=== PATIENT | female | born 1940 | race Caucasian/White ===

== ENCOUNTER 2016-08-11 10:38 | Outpatient (CLI) | payer MEDICARE, OTHER | END 2016-08-11 10:39 | disposition home or self-care (01) | DX: M51.36 Other intervertebral disc degeneration, lumbar region (principal); M47.896 Other spondylosis, lumbar region; M51.37 Other intervertebral disc degeneration, lumbosacral region; M47.897 Other spondylosis, lumbosacral region ==

== ENCOUNTER 2017-10-02 16:07 | Outpatient (CLI) | payer MEDICARE, OTHER | END 2017-10-02 16:08 | disposition critical access hospital (66) | LOC: EMS 16:07 | PROVIDERS: ATTEND Surgery | DX: S09.90XA Unspecified injury of head, initial encounter (principal); R41.82 Altered mental status, unspecified; W17.89XA Other fall from one level to another, initial encounter; Y92.000 Kitchen of unspecified non-institutional (private) residence as the place of occurrence of the external cause | CPT/HCPCS: A0425; A0427 ==

== ENCOUNTER 2017-10-02 16:20 | Inpatient (IN) | payer MEDICARE, OTHER ==
[2017-10-02] MEDS ORDERED: ONDANSETRON 4 MG/2 ML VIAL IVP STA (16:25)
[2017-10-02] MEDS ORDERED: LORazepam 2 MG/ML VIAL IVP STA (16:27)
[2017-10-02 16:35] LABS: BASOPHILS % (AUTO) 0.6 %; EOSINOPHILS # (AUTO) 0.1 10^3/uL (0.0-0.7); HGB - HEMOGLOBIN 14.4 g/dL (12.0-16.0); LYMPHOCYTES % (AUTO) 37.3 %; MEAN CORPUSCULAR HEMOGLOBIN 29.2 pg (27.0-31.0); MEAN CORPUSCULAR HGB CONC 33.8 g/dL (32.0-36.0); MEAN CORPUSCULAR VOLUME 86.5 fL (81.0-99.0); MEAN PLATELET VOLUME 7.5 fL (7.9-10.8); MONOCYTES # (AUTO) 0.4 10^3/uL (0.0-1.0); MONOCYTES % (AUTO) 7.6 %; NEUTROPHILS # (AUTO) 2.8 10^3/uL (1.5-6.6); NEUTROPHILS % (AUTO) 52.5 %; PLT - PLATELET COUNT 211 10^3/uL (130-450); RED BLOOD COUNT 4.93 10^6/uL (4.20-5.40); RED CELL DISTRIBUTION WIDTH 12.9 % (12.0-15.0); WHITE BLOOD COUNT 5.4 x10^3/uL (4.8-10.8)
[2017-10-02 16:49] LABS: ALBUMIN 4.3 g/dL (3.2-5.5); ALBUMIN/GLOBULIN RATIO 1.3 (1.0-2.2); BILIRUBIN,TOTAL 0.6 mg/dL (0.2-1.0); CALCIUM 9.1 mg/dL (8.5-10.3); CREATININE 0.7 mg/dL (0.4-1.0); TOTAL PROTEIN 7.6 g/dL (6.7-8.2)
--- NOTE | 2017-10-02 17:15 | CT Report ---
EXAM: CT HEAD EXAM DATE: 10/02/2017 04:56 PM. CLINICAL HISTORY: Fell and hit head, LOC and concussive symptoms. COMPARISON: 05/30/2007. TECHNIQUE: Multiaxial CT images were obtained from the foramen magnum to the vertex. Reformats: Coron al. IV contrast: None. In accordance with CT protocol optimization, one or more of the following dose reduction techniques w ere utilized for this exam: automated exposure control, adjustment of mA and/or KV based on patient s ize, or use of iterative reconstructive technique. FINDINGS: Parenchyma: There is [id number] nonfocal periventricular white matter hypodensity. Negative for acute intracranial hemorrhage. There is no midline shift or mass effect. Extraaxial Spaces: No subdural or epidural collections identified. Ventricles: Normal in size and position. Sinuses and Orbits: There is ethmoid sinus mucosal thickening. Bones: There is a posterior scalp hematoma. Other: None. IMPRESSION: 1. Negative for intracranial acute hemorrhage and mass effect. 2. Small posterior scalp hematoma. 3. 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 [facility] Referring Provider Line: [phone] SITE ID: [id number]
--- NOTE | 2017-10-02 17:15 | CT Preliminary Report ---
Exam: CT HEAD W/O IMPRESSION: 1. Negative for intracranial acute hemorrhage and mass effect. 2. Small posterior scalp hematoma. 3. 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 [facility] SITE ID: [id number]
--- NOTE | 2017-10-02 17:21 | CT Preliminary Report ---
Exam: CT CERVICAL SPINE W/O IMPRESSION: 1. Negative for an acute fracture and subluxation of the cervical spine. Multilevel chronic degenerat rahel disease present. [facility] SITE ID: [id number]
--- NOTE | 2017-10-02 17:21 | CT Report ---
EXAM: CT CERVICAL SPINE WITHOUT CONTRAST DATE: 10/02/2017 04:56 PM. HISTORY: Fell and hit head, LOC. COMPARISONS: 05/30/2007. TECHNIQUE: Thin-section axial images were acquired of the cervical spine without contrast. Post-proce ssing: Coronal and sagittal reformats. Other: None. In accordance with CT protocol optimization, one or more of the following dose reduction techniques w ere utilized for this exam: automated exposure control, adjustment of mA and/or KV based on patient s ize, or use of iterative reconstructive technique. FINDINGS: Alignment: No subluxation or scoliosis. Bones: Negative for an acute fracture. There is multilevel degenerative disease. Interspace Levels/Facets: There is joint space narrowing and spurring with subchondral cystic change around the anterior C1 and C2 articulation consistent with a degenerative process. There is moderate disk height loss at C4-C5, C5-C6, and C6-C7. Facet joints appear normal in alignment. Musculature: Normal. No fatty atrophy. Other: The thyroid is heterogeneous. No paravertebral hematoma. Negative for apical pneumothorax. IMPRESSION: 1. Negative for an acute fracture and subluxation of the cervical spine. Multilevel chronic degenerat rahel disease present. [facility] Referring Provider Line: [phone] SITE ID: [id number]
--- NOTE | 2017-10-02 17:53 | ED Physician Documentation ---
PD HPI HEAD INJURY - Stated complaint Stated Complaint: FALL - Chief complaint Chief Complaint: Neuro - History obtained from History obtained from: Patient, Family () - History of Present Illness Mechanism of head injury: Fell (She was on a two-step stepstool reaching on top of the fridge and fell backwards striking the back of her head. Her heard the fall from the other room and came in to find her unconscious and unresponsive. This was for couple of minutes. She was awake and vomiting on EMS arrival. She was not able to answer questions or follow commands. She was brought to the emergency room by ambulance. She was given fluids and antiemetic en route without much improvement. She arrives vomiting. She does not take any blood thinners. No history of seizures, migraines, concussion.) Where head injury occurred: Home Location of injury: Back Associated symptoms: LOC, AMS, Amnesia, Nausea / vomiting. No: Paresthesias, Seizures Contributing factors: No: Anticoagulated, Intoxicated Review of Systems Unable to obtain: AMS, Other (info from ) Constitutional: denies: Fever Cardiac: denies: Chest pain / pressure Respiratory: denies: Cough GI: denies: Abdominal Pain, Vomiting, Diarrhea Skin: denies: Rash PD PAST MEDICAL HISTORY - Past Medical History Past Medical History: No Cardiovascular: Hypertension Respiratory: None Endocrine/Autoimmune: None GI: None : None HEENT: None Psych: None Musculoskeletal: None Derm: None - Present Medications Home Medications: Ambulatory Orders Medication Instructions Recorded Confirmed Aspirin [Aspir 81] 81 mg ORAL DAILY 12/15/13 10/02/17 Citalopram Hydrobromide 40 mg PO DAILY 10/02/17 10/02/17 [Citalopram HBr] Ibuprofen 400 - 600 mg PO Q6H PRN 10/02/17 10/02/17 Levothyroxine Sodium 100 mcg PO DAILY 10/02/17 10/02/17 [place]-3 Acid Ethyl Esters 1 gm PO BID 10/02/17 10/02/17 Red Yeast Rice 600 mg PO DAILY 10/02/17 10/02/17 amLODIPine [Norvasc] 2.5 mg PO DAILY 10/02/17 10/02/17 - Allergies Allergies/Adverse Reactions: Allergies Allergy/AdvReac Type Severity Reaction Status Date / Time No Known Drug Allergies Allergy Verified 12/15/13 08:14 - Social History Does the pt smoke?: No Smoking Status: Never smoker Does the pt drink ETOH?: No Does the pt have substance abuse?: No - Family History Family history: reports: Non contributory PD ED PE NORMAL - Vitals Vital signs reviewed: Yes - General General: No: Alert and oriented X 3, No acute distress (anxious and is having repetitive vomiting on arrival. Removed from backboard after focused neuro exam without showing any camps/etc.) - HEENT HEENT: Ears normal, Moist mucous membranes, Pharynx benign, Other (tenderness in back of head with local swelling. ) - Neck Neck: Supple, no meningeal sign, No bony TTP, No adenopathy, No JVD - Cardiac Cardiac: RRR, No murmur - Respiratory Respiratory: Clear bilaterally - Abdomen Abdomen: Soft, Non tender - Female Female : Deferred - Rectal Rectal: Deferred - Back Back: No CVA TTP, No spinal TTP - Derm Derm: Normal color, Warm and dry - Extremities Extremities: No tenderness to palpate, Normal ROM s pain - Neuro Neuro: No motor deficit, No sensory deficit Eye Opening: Spontaneous Motor: Withdraws to Pain Verbal: Inappropriate GCS Score: 11 - Psych Psych: No: Normal affect Results - Vitals Vitals: Vital Signs - 24 hr 10/02/17 10/02/17 16:30 17:00 Temperature 36.5 C Heart Rate 80 62 Respiratory 22 12 Rate Blood Pressure 161/124 H 158/83 H O2 Saturation 100 100 Oxygen O2 Source Nasal cannula Oxygen Flow Rate 2 - Labs Labs: Laboratory Tests 10/02/17 10/02/17 10/02/17 16:25 16:25 16:25 WBC 5.4 RBC 4.93 Hgb 14.4 Hct 42.6 MCV 86.5 MCH 29.2 MCHC 33.8 RDW 12.9 Plt Count 211 MPV 7.5 L Neut # (Auto) 2.8 Lymph # (Auto) 2.0 Charlton # (Auto) 0.4 Eos # (Auto) 0.1 Baso # (Auto) 0.0 Absolute Nucleated RBC 0.00 Nucleated RBC % 0.0 PT 11.0 INR 1.0 APTT 25.9 Sodium 135 Potassium 3.3 L Chloride 101 Carbon Dioxide 25 Anion Gap 9.0 BUN 17 Creatinine 0.7 Estimated GFR (MDRD) 81 L Glucose 95 Calcium 9.1 Magnesium 2.0 Total Bilirubin 0.6 AST 37 ALT 31 Alkaline Phosphatase 63 Troponin I Total Protein 7.6 Albumin 4.3 Globulin 3.3 Albumin/Globulin Ratio 1.3 Lipase 44 10/02/17 16:25 WBC RBC Hgb Hct MCV MCH MCHC RDW Plt Count MPV Neut # (Auto) Lymph # (Auto) Charlton # (Auto) Eos # (Auto) Baso # (Auto) Absolute Nucleated RBC Nucleated RBC % PT INR APTT Sodium Potassium Chloride Carbon Dioxide Anion Gap BUN Creatinine Estimated GFR (MDRD) Glucose Calcium Magnesium Total Bilirubin AST ALT Alkaline Phosphatase Troponin I < 0.04 Total Protein Albumin Globulin Albumin/Globulin Ratio Lipase - Rads (name of study) head CT Radiology: Prelim report reviewed (no ICH nor fractures. ) cervical CT Radiology: Prelim report reviewed (no fractures) PD MEDICAL DECISION MAKING - ED course Complexity details: reviewed results (No ICH nor fractures. ), re-evaluated patient (slowly improving and is oriented to person on recheck post CT.), considered differential, d/w patient, d/w family Departure - Departure Disposition: 66 [facility] DC/Xfer Clinical Impression: Fall involving stool as cause of accidental injury Concussion Qualifiers: Encounter type: initial encounter Loss of consciousness presence/duration: with LOC of 30 min or less Qualified Code(s): S06.0X1A - Concussion with loss of consciousness of 30 minutes or less, initial encounter Vomiting Qualifiers: Vomiting type: unspecified Vomiting Intractability: non-intractable Nausea presence: with nausea Qualified Code(s): R11.2 - Nausea with vomiting, unspecified Clinical Impression: (Ruled Out): Intracranial hemorrhage Condition: Stable Record reviewed to determine appropriate education?: Yes Discharge Date/Time: 10/02/17 19:26
[2017-10-02] MEDS ORDERED: DEXAMETHASONE 10 MG/ML VIAL IVP STA (17:54)
[2017-10-02] MEDS ORDERED: PROMETHAZINE INJ 6.25 MG in SODIUM CHLORIDE 0.9% 50 ML IV STA (17:54)
--- NOTE | 2017-10-02 18:20 | HISTORY & PHYSICAL EXAMINATION ---
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 - Substance History Use: Uses substance without health or social issues: NONE Abuse: Recurrent use of substance despite neg consequences: NONE Dependence: Experiences withdrawal or developed tolerances: NONE - POLST Patient has POLST: No POLST Status: Full Code Meds/Allgy - Home Medications Home Medications: Ambulatory Orders Medication Instructions Recorded Confirmed Aspirin [Aspir 81] 81 mg ORAL DAILY 12/15/13 10/02/17 Citalopram Hydrobromide 40 mg PO DAILY 10/02/17 10/02/17 [Citalopram HBr] Levothyroxine Sodium 100 mcg PO DAILY 10/02/17 10/02/17 amLODIPine [Norvasc] 5 mg PO DAILY 10/02/17 10/02/17 - Allergies Allergies/Adverse Reactions: Allergies Allergy/AdvReac Type Severity Reaction Status Date / Time No Known Drug Allergies Allergy Verified 12/15/13 08:14 Review of Systems - Constitutional Constitutional: reports: Other (The patient's mental status is altered at this time; she is confused and has very little memory of what happened to her earlier today.). denies: Fatigue, Fever, Chills, Night sweats - Eyes Eyes: denies: Pain, Irritation, Blurred vision, Field loss, Dipolpia - Ears, Nose & Throat Ears, Nose & Throat: denies: Ear pain, Tinnitus, Vertigo, Nasal pain, Nosebleeds , Hoarseness - Cardiovascular Cariovascular: denies: Irregular heart rate, Palpitations, Chest pain, Edema, Syncope - Respiratory Respiratory: denies: Cough, Sputum production, Wheezing, Snoring, Hemoptysis, Orthopnea - Gastrointestinal Gastrointestinal: denies: Abdominal pain, Abdominal distention, Constipation, Diarrhea, Change in bowel habits, Rectal bleeding - Genitourinary Genitourinary: denies: Dysuria, Frequency, Urgency, Hematuria - Musculoskeletal Musculoskeletal: denies: Muscle pain, Back pain, Muscle aches, Stiffness - Integumentary Integumentary: denies: Rash, Pruritis, Lesions, Dryness - Neurological Neurological: reports: Other (Patient appears to have postconcussion syndrome consisting of confusion and poor memory. She has also vomited several times.). denies: General weakness, Focal weakness, Headache, Dizziness - Psychiatric Psychiatric: denies: Depression, Anxiety, Suicidal - Endocrine Endocrine: denies: Polyuria, Polydypsia, Polyphagia, Intolerance to cold - Hematologic/Lymphatic Hematologic/Lymphatic: denies: Anemia, Bruising, Petechiae, Lymphadenopathy - All Other Systems All Other Systems: reports: Reviewed and negative Exam - Vital Signs Reviewed Vital Signs: Yes Vital Signs: Vital Signs x48h Temp Pulse Resp BP Pulse Ox 10/02/17 17:00 62 12 158/83 H 100 10/02/17 16:30 36.5 C 80 22 161/124 H 100 - Physical Exam General Appearance: positive: Mild distress, Anxious Eyes Bilateral: positive: Normal inspection, PERRL, EOMI, No lid inflammation, Conjunctivae nml, No scleral icterus ENT: positive: ENT inspection nml, Pharynx nml, No signs of dehydration Neck: positive: Nml inspection, Thyroid nml, No JVD, Trachea midline. negative : Thyromegaly Respiratory: positive: Chest non-tender, No respiratory distress, Breath sounds nml. negative: Wheezes, Rales, Rhonchi Cardiovascular: positive: Regular rate & rhythm, No murmur, No gallop Peripheral Pulses: positive: 1+ Abdomen: positive: Non-tender, No organomegaly, Nml bowel sounds, No distention. negative: Guarding, Rebound Back: positive: Nml inspection. negative: CVA tenderness (R), CVA tenderness (L ) Skin: positive: Color nml, No rash, Warm, Dry. negative: Cyanosis Extremities: positive: Non-tender, Full ROM, Nml appearance Neurologic/Psychiatric: positive: CN's nml (2-12), Motor nml, Sensation nml, Mood/affect nml, Disoriented to place, Disoriented to time, Depressed mood/ affect Conclusion/Plan - Problem List (1) Concussion Conclusion/Plan: CT scan of the head and neck is negative for any bleeding or trauma however the patient is exhibiting signs of a postconcussive state including confusion, poor memory, and nausea and vomiting. We will admit her to medical surgical bed and monitor her closely overnight. If she returns to baseline we will discharge her tomorrow morning otherwise we will consider transferring her to a hospital where they have a neurologist on staff. Qualifiers: Encounter type: initial encounter Loss of consciousness presence/duration: with LOC of 30 min or less Qualified Code(s): S06.0X1A - Concussion with loss of consciousness of 30 minutes or less, initial encounter (2) Hypertension Conclusion/Plan: We will restart the patient on her amlodipine and monitor her closely. (3) Hypothyroidism Conclusion/Plan: We will continue the patient on her levothyroxine and obtain a TSH level in the morning. (4) Depression Conclusion/Plan: We will continue the patient on her citalopram - Lab Results Lab results reviewed: Yes Fish Bones: 10/02/17 16:25 10/02/17 16:25 - Diagnostic Imaging Results Diagnostic Imaging Results: positive: Final report reviewed Diagnostic Imaging Results Comments: EXAM: CT HEAD EXAM DATE: 10/02/2017 04:56 PM. CLINICAL HISTORY: Fell and hit head, LOC and concussive symptoms. COMPARISON: 05/30/2007. TECHNIQUE: Multiaxial CT images were obtained from the foramen magnum to the vertex. Reformats: Coronal. IV contrast: None. In accordance with CT protocol optimization, one or more of the following dose reduction techniques were utilized for this exam: automated exposure control, adjustment of mA and/or KV based on patient size, or use of iterative reconstructive technique. FINDINGS: Parenchyma: There is [id number] nonfocal periventricular white matter hypodensity. Negative for acute intracranial hemorrhage. There is no midline shift or mass effect. Extraaxial Spaces: No subdural or epidural collections identified. Ventricles: Normal in size and position. Sinuses and Orbits: There is ethmoid sinus mucosal thickening. Bones: There is a posterior scalp hematoma. Other: None. IMPRESSION: 1. Negative for intracranial acute hemorrhage and mass effect. 2. Small posterior scalp hematoma. 3. 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 EXAM: CT CERVICAL SPINE WITHOUT CONTRAST DATE: 10/02/2017 04:56 PM. HISTORY: Fell and hit head, LOC. COMPARISONS: 05/30/2007. TECHNIQUE: Thin-section axial images were acquired of the cervical spine without contrast. Post- processing: Coronal and sagittal reformats. Other: None. In accordance with CT protocol optimization, one or more of the following dose reduction techniques were utilized for this exam: automated exposure control, adjustment of mA and/or KV based on patient size, or use of iterative reconstructive technique. FINDINGS: Alignment: No subluxation or scoliosis. Bones: Negative for an acute fracture. There is multilevel degenerative disease. Interspace Levels/Facets: There is joint space narrowing and spurring with subchondral cystic change around the anterior C1 and C2 articulation consistent with a degenerative process. There is moderate disk height loss at C4 -C5, C5-C6, and C6-C7. Facet joints appear normal in alignment. Musculature: Normal. No fatty atrophy. Other: The thyroid is heterogeneous. No paravertebral hematoma. Negative for apical pneumothorax. IMPRESSION: 1. Negative for an acute fracture and subluxation of the cervical spine. Multilevel chronic degenerative disease present. - EKG Results EKG Interpreted Independently: Yes EKG Comparison: No prior EKG EKG Findings: Normal sinus rhythm, no ischemic changes noted Core Measures - Anticipated LOS I expect patient to be DC'd or transferred within 96 hours.: Yes - DVT/VTE - Prophylaxis VTE/DVT Device ordered at admit?: Yes
[2017-10-02] MEDS ORDERED: PROCHLORPERAZINE 10 MG/2 ML VIAL IVP PRN (18:33)
[2017-10-02] MEDS ORDERED: HYDROcod/ACETAM 5/325 MG TABLET PO PRN (18:33)
[2017-10-02] MEDS ORDERED: SODIUM CHLORIDE FLUSH 0.9% 10 ML SYRINGE IVP PRN (18:33)
[2017-10-02] MEDS: D5.45NS W/20 MEQ KCL 1,000 ML IV SCH (19:46)
[2017-10-02] MEDS ORDERED: ACETAMINOPHEN 325 MG TABLET PO PRN (22:15)
[2017-10-03] MEDS ORDERED: SODIUM CHLORIDE FLUSH 0.9% 10 ML SYRINGE IVP SCH (01:00)
[2017-10-03] MEDS: IBUPROFEN 600 MG TABLET PO SCH ×2 (01:54→08:15)
[2017-10-03] MEDS: D5.45NS W/20 MEQ KCL 1,000 ML IV SCH (05:52)
[2017-10-03 06:07] LABS: HGB - HEMOGLOBIN 12.8 g/dL (12.0-16.0); MEAN CORPUSCULAR HEMOGLOBIN 29.5 pg (27.0-31.0); MEAN CORPUSCULAR HGB CONC 33.5 g/dL (32.0-36.0); MEAN CORPUSCULAR VOLUME 87.9 fL (81.0-99.0); MEAN PLATELET VOLUME 7.9 fL (7.9-10.8); RED BLOOD COUNT 4.33 10^6/uL (4.20-5.40); RED CELL DISTRIBUTION WIDTH 12.8 % (12.0-15.0); WHITE BLOOD COUNT 5.8 x10^3/uL (4.8-10.8)
[2017-10-03 06:15] LABS: CALCIUM 8.6 mg/dL (8.5-10.3); CREATININE 0.7 mg/dL (0.4-1.0)
[2017-10-03] MEDS ORDERED: POLYETHYLENE GLYCOL 3350 17 GM PACKET PO SCH (09:00)
[2017-10-03] MEDS ORDERED: LEVOTHYROXINE 100 MCG TABLET PO SCH (09:00)
[2017-10-03] MEDS ORDERED: CITALOPRAM 10 MG TABLET PO SCH (09:00)
[2017-10-03] MEDS ORDERED: amLODIPine 5 MG TABLET PO SCH (09:00)
[2017-10-03] MEDS ORDERED: ACETAMINOPHEN 325 MG TABLET PO PRN (09:23)
--- NOTE | 2017-10-03 11:29 | Discharge Plan ---
Discharge Plan Disposition: 01 Home, Self Care Condition: Stable Diet: Regular Activity Restrictions: Activity as Tolerated Shower Restrictions: No Driving Restrictions: No No Smoking: If you smoke, Please STOP! Call for help. Follow-up with: Michelet Vega MD [Primary Care Provider] -
[2017-10-03 12:19] VITALS: BP 128/73
--- NOTE | 2017-10-03 12:52 | DISCHARGE SUMMARY ---
Discharge Summary Admit Date: 10/02/17 Discharge Date: 10/03/17 Discharging Provider: Marcela Posada DO Primary Care Provider: Michelet Vega Code Status: Attempt Resuscitation Condition at Discharge: Stable Discharge Disposition: 01 Home, Self Care - DIAGNOSES Admission Diagnoses: 1. Concussion 2. Hypertension 3. Hypothyroidism 4. Depression Discharge Diagnoses with Status of Each Condition: 1. Concussion - CT scan of the head and neck were negative for any bleeding or trauma but the patient was very obtunded yesterday. Her family is at the bedside today and states she is back to her baseline, and has remembered minute details in their conversations this morning. Since she was negative for any imaging workup problems, we will discharge her home this afternoon. 2. Hypertension- The patient's blood pressure was elevated last night but it is 128/73 at this time. Continue home regimen 3. Hypothyroidism - The patient's TSH is low suggesting that her levothyroxine dosing may be higher than what she needs. I will ask her to follow-up with her PCP. 4. Depression - Well-managed, continue home Celexa. - HPI History of Present Illness: Mrs. Regi Vo is a very pleasant 77-year-old lady who was reaching for something overhead on a step stool earlier today when she lost her balance, falling backwards, and striking her head. Her was in the room next door and heard her fall and when he came in found her to be minimally responsive but conscious with her head abdomen on ankle. In the emergency department the patient underwent a CT scan of her head and neck and these were negative for any type of trauma or bleeding. Unfortunately however the patient still remains obtunded, very confused with no memory of the preceding events or anything that happened earlier today. She is oriented only to person at this time and so will be admitted to the hospital for serial neuro checks and possible further workup. - HOSPITAL COURSE Hospital Course: Patient was admitted to the hospital in medical surgical bed and had neuro checks performed serially. Today she is back to her baseline according to her family and is not showing any signs of any lasting damage from the concussion yesterday. She has no other medical issues and so will be discharged home today. - ALLERGIES Allergies/Adverse Reactions: Allergies Allergy/AdvReac Type Severity Reaction Status Date / Time No Known Drug Allergies Allergy Verified 12/15/13 08:14 - MEDICATIONS Home Medications: Ambulatory Orders Medication Instructions Recorded Confirmed Aspirin [Aspir 81] 81 mg ORAL DAILY 12/15/13 10/02/17 Citalopram Hydrobromide 40 mg PO DAILY 10/02/17 10/02/17 [Citalopram HBr] Ibuprofen 400 - 600 mg PO Q6H PRN 10/02/17 10/02/17 Levothyroxine Sodium 100 mcg PO DAILY 10/02/17 10/02/17 [place]-3 Acid Ethyl Esters 1 gm PO BID 10/02/17 10/02/17 Red Yeast Rice 600 mg PO DAILY 10/02/17 10/02/17 amLODIPine [Norvasc] 2.5 mg PO DAILY 10/02/17 10/02/17 Ibuprofen [Motrin] 600 mg PO Q6H tablet 10/03/17 Polyethylene Glycol 3350 [Miralax] 17 gm PO DAILY packet 10/03/17 - PHYSICAL EXAM AT DISCHARGE General Appearance: positive: No acute distress, Alert Eyes Bilateral: positive: Normal inspection, PERRL, EOMI, No lid inflammation, Conjunctivae nml, No scleral icterus ENT: positive: ENT inspection nml, Pharynx nml, No signs of dehydration Neck: positive: Nml inspection, Thyroid nml, No JVD, Trachea midline. negative : Thyromegaly Respiratory: positive: Chest non-tender, No respiratory distress, Breath sounds nml. negative: Wheezes, Rales, Rhonchi Cardiovascular: positive: Regular rate & rhythm, No murmur, No gallop Peripheral Pulses: positive: 1+ Abdomen: positive: Non-tender, No organomegaly, Nml bowel sounds, No distention. negative: Guarding, Rebound Back: positive: Nml inspection. negative: CVA tenderness (R), CVA tenderness (L ) Skin: positive: Color nml, No rash, Warm, Dry. negative: Cyanosis Extremities: positive: Non-tender, Full ROM, Nml appearance, No pedal edema Neurologic/Psychiatric: positive: Oriented x3, CN's nml (2-12), Motor nml, Sensation nml, Mood/affect nml - LABS Result Diagrams: 10/03/17 05:35 10/03/17 05:35 - DIAGNOSTIC IMAGING Diagnostic Imaging Results: Final report reviewed Diagnostic Imaging Results Comments: EXAM: CT HEAD EXAM DATE: 10/02/2017 04:56 PM. CLINICAL HISTORY: Fell and hit head, LOC and concussive symptoms. COMPARISON: 05/30/2007. TECHNIQUE: Multiaxial CT images were obtained from the foramen magnum to the vertex. Reformats: Coronal. IV contrast: None. In accordance with CT protocol optimization, one or more of the following dose reduction techniques were utilized for this exam: automated exposure control, adjustment of mA and/or KV based on patient size, or use of iterative reconstructive technique. FINDINGS: Parenchyma: There is [id number]-[id number] nonfocal periventricular white matter hypodensity. Negative for acute intracranial hemorrhage. There is no midline shift or mass effect. Extraaxial Spaces: No subdural or epidural collections identified. Ventricles: Normal in size and position. Sinuses and Orbits: There is ethmoid sinus mucosal thickening. Bones: There is a posterior scalp hematoma. Other: None. IMPRESSION: 1. Negative for intracranial acute hemorrhage and mass effect. 2. Small posterior scalp hematoma. 3. 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 EXAM: CT CERVICAL SPINE WITHOUT CONTRAST DATE: 10/02/2017 04:56 PM. HISTORY: Fell and hit head, LOC. COMPARISONS: 05/30/2007. TECHNIQUE: Thin-section axial images were acquired of the cervical spine without contrast. Post- processing: Coronal and sagittal reformats. Other: None. In accordance with CT protocol optimization, one or more of the following dose reduction techniques were utilized for this exam: automated exposure control, adjustment of mA and/or KV based on patient size, or use of iterative reconstructive technique. FINDINGS: Alignment: No subluxation or scoliosis. Bones: Negative for an acute fracture. There is multilevel degenerative disease. Interspace Levels/Facets: There is joint space narrowing and spurring with subchondral cystic change around the anterior C1 and C2 articulation consistent with a degenerative process. There is moderate disk height loss at C4 -C5, C5-C6, and C6-C7. Facet joints appear normal in alignment. Musculature: Normal. No fatty atrophy. Other: The thyroid is heterogeneous. No paravertebral hematoma. Negative for apical pneumothorax. IMPRESSION: 1. Negative for an acute fracture and subluxation of the cervical spine. Multilevel chronic degenerative disease present. - FOLLOW UP Follow Up: With Dr. Vega in 1 week - TIME SPENT Time Spent in Discharge (Minutes): 40
== END 2017-10-03 12:57 | disposition home or self-care (01) | DRG 90 ==
LOC: EDUNIT# → EDBD → ED 16:20 → MS2 18:33
PROVIDERS: ADMIT Hospitalist; ATTEND Hospitalist
DX: S06.0X1A Concussion with loss of consciousness of 30 minutes or less, initial encounter (principal); W08.XXXA Fall from other furniture, initial encounter; R40.2422 Glasgow coma scale score 9-12, at arrival to emergency department; R11.2 Nausea with vomiting, unspecified; I10 Essential (primary) hypertension; Z79.82 Long term (current) use of aspirin; E03.9 Hypothyroidism, unspecified; F32.9 Major depressive disorder, single episode, unspecified; Z79.899 Other long term (current) drug therapy
CPT/HCPCS: 36415; 70450; 72125; 80048; 80053; 83690; 83735; 84443; 84484; 85025; 85027; 85610; 85730; 93005; 96365; 96375; 99284

== ENCOUNTER 2018-03-05 08:30 | Inpatient (IN) | payer MEDICARE, OTHER ==
[2018-03-12] MEDS ORDERED: ceFAZolin 2 GM/50 ML 2 GM/50 ML BAG IV ONE (06:36)
[2018-03-12] MEDS ORDERED: SCOPOLAMINE PATCH TOP ONE (06:49)
[2018-03-12] MEDS ORDERED: LACTATED RINGERS 1,000 ML IV ONE ×2 (06:50→08:50)
[2018-03-12] MEDS ORDERED: BUPIVACAINE 0.5% PF 30 ML VIAL ONE ×2 (06:57→07:13)
[2018-03-12] MEDS ORDERED: EPINEPHrine 1 MG/ML AMP ONE (06:57)
--- NOTE | 2018-03-12 07:08 | ANESTHESIA ---
Pre-Anesthesia VS, & Labs - Diagnosis left knee osteoarthritis - Procedure left total knee arthroplasty Vital Signs: Temp Pulse Resp BP Pulse Ox 36.6 C 65 18 134/89 H 98 03/12/18 06:39 03/12/18 06:39 03/12/18 06:39 03/12/18 06:39 03/12/18 06:39 Height 5 ft 3 in Weight (kg) 89.8 kg Body Mass Index 33.5 - NPO >8 hours - Is Patient ?: Not Applicable - Lab Results Lab results reviewed: Yes Home Medications and Allergies Home Medications: Ambulatory Orders ALPRAZolam [Alprazolam] 0.25 mg PO DAILY PRN 03/11/18 B Complex with Vitamin C [Vitamin B-Complex with Vit C] 1 each PO DAILY 03/11/18 Cholecalciferol (Vitamin D3) [Vitamin D3] 1,000 unit PO DAILY 03/11/18 Furosemide 20 mg PO DAILY PRN 03/11/18 Aspirin [Aspir 81] 81 mg ORAL DAILY 12/15/13 Citalopram Hydrobromide [Citalopram HBr] 20 mg PO DAILY 10/02/17 Levothyroxine Sodium 125 mcg PO DAILY 10/02/17 amLODIPine [Norvasc] 2.5 mg PO DAILY 10/02/17 ALPRAZolam [Alprazolam] 0.25 mg PO DAILY PRN 03/11/18 B Complex with Vitamin C [Vitamin B-Complex with Vit C] 1 each PO DAILY 03/11/18 Cholecalciferol (Vitamin D3) [Vitamin D3] 1,000 unit PO DAILY 03/11/18 Furosemide 20 mg PO DAILY PRN 03/11/18 Allergies/Adverse Reactions: Allergies Allergy/AdvReac Type Severity Reaction Status Date / Time acetaminophen [From Percocet] Allergy Nausea Verified 03/12/18 07:03 oxycodone AdvReac Hallucinati Verified 03/11/18 11:39 ons Anes History & Medical History - Anesthetic History Anesthesia Complications: reports: Post-Operative Nausea/Vomiting Family history of Anesthesia Complications: Denies Family history of Malignant Hyperthermia: Denies - Medical History Cardiovascular: reports: Hypertension Pulmonary: reports: None Gastrointestinal: reports: None Urinary: reports: None Neuro: reports: Migraines, Peripheral neuropathy Musculoskeletal: reports: None Endocrine/Autoimmune: reports: None Blood Disorders: reports: None Skin: reports: None Smoking Status: Never smoker - Surgical History Eyes Ears Nose Throat (EENT): Tonsil/Adenoidectomy Gynecologic: Hysterectomy, Oophrectomy, Other Orthopedic: Spine surgery Dermatologic: Other Exam General: Alert, Oriented x3, Cooperative, No acute distress Dental: Dentures full Upper Mouth Openin Fingerbreadth Neck Mobility: Reduced Mallampati classification: III Thyromental Distance: 4-6 cm Respiratory: Lungs clear, Normal breath sounds, No respiratory distress, No accessory muscle use Cardiovascular: Regular rate, Normal S1, Normal S2, No murmurs Mental/Cognitive Status: Alert/Oriented X3, Normal for patient Plan Anesthesia Type: Spinal Consent for Procedure(s) Verified and Reviewed: Yes Code Status: Attempt Resuscitation ASA classification: 2-Mild systemic disease Is this case an emergency?: No
[2018-03-12] MEDS ORDERED: ROPIVACAINE 0.5% PF 20 ML AMPULE ONE ×2 (07:28→10:44)
[2018-03-12] MEDS ORDERED: MORPHINE PF 5 MG/10 ML AMP SUBQ ONE (08:47)
[2018-03-12] MEDS ORDERED: KETOROLAC 15 MG/ML VIAL IVP ONE (08:47)
[2018-03-12] MEDS ORDERED: EPINEPHrine 1 MG/ML AMP SUBQ ONE (08:48)
[2018-03-12] MEDS ORDERED: BUPIVACAINE 0.5% PF 30 ML VIAL SUBQ ONE (08:48)
[2018-03-12] MEDS ORDERED: ROPIVACAINE 0.2% PF 20 ML AMPULE SUBQ ONE (08:48)
[2018-03-12] MEDS ORDERED: fentaNYL 250 MCG/5 ML VIAL IVP ONE (09:07)
[2018-03-12] MEDS ORDERED: ROCURONIUM 50 MG/5 ML VIAL IVP ONE (09:07)
[2018-03-12] MEDS ORDERED: PROPOFOL 200 MG/20 ML VIAL IVP ONE (09:07)
[2018-03-12] MEDS ORDERED: TRANEXAMIC ACID 1,000 MG/10 ML VIAL IV ONE (09:07)
[2018-03-12] MEDS ORDERED: ONDANSETRON 4 MG/2 ML VIAL IVP ONE (09:07)
[2018-03-12] MEDS ORDERED: MORPHINE 10 MG/ML VIAL IVP ONE (09:07)
[2018-03-12] MEDS: fentaNYL 100 MCG/2 ML VIAL ONE ×3 (10:12→10:40)
--- NOTE | 2018-03-12 10:20 | OPERATIVE REPORT ---
Operative Report - General Admit Date: 03/12/18 Procedure Date: 03/12/18 Planned Procedure: left TKA Pre-Op Diagnosis: DJD Left knee Procedure Performed: Left TKA Post Op Diagnosis: same - Procedure Note Primary Surgeon: little Anesthesia Provider: aaron Anesthesia Technique: General ET tube Estimated Blood Loss (mL): 100 - Other Other Information/Narrative: This patient is expected to be discharge prior to 96hrs of hospitalization
[2018-03-12] MEDS ORDERED: PROCHLORPERAZINE 10 MG/2 ML VIAL IVP PRN (10:21)
[2018-03-12] MEDS ORDERED: BISACODYL 10 MG SUPP PR PRN (10:21)
[2018-03-12] MEDS ORDERED: ONDANSETRON 4 MG/2 ML VIAL IVP PRN (10:21)
[2018-03-12] MEDS ORDERED: SENNA 8.6 MG TABLET PO PRN (10:21)
[2018-03-12] MEDS ORDERED: ALPRAZolam 0.25 MG TABLET PO PRN (10:26)
[2018-03-12] MEDS ORDERED: FUROSEMIDE 20 MG TABLET PO PRN (10:26)
--- NOTE | 2018-03-12 11:29 | XRAY Report ---
Reason: post op Procedure Date: 03/12/2018 Accession Number: [id number] / [id number] Procedure: XR - Knee 2 View LT CPT Code: FULL RESULT: EXAM: LEFT KNEE RADIOGRAPHY EXAM DATE: 03/12/2018 10:51 AM. CLINICAL HISTORY: Post op. COMPARISON: 7 TECHNIQUE: 2 views. FINDINGS: Bones and Joints: No fractures or bone lesion. A 3 component left knee arthroplasty has been performed. There is expected alignment of components. No unexpected periprosthetic lucency or other evidence of loosening. Soft Tissues: Postsurgical changes present. IMPRESSION: Expected appearance of left knee arthroplasty. RADIA
[2018-03-12] MEDS: ceFAZolin 2 GM/50 ML 2 GM/50 ML BAG IV SCH ×2 (12:22→20:23)
[2018-03-12] MEDS: LACTATED RINGERS 1,000 ML IV SCH ×2 (12:22→22:53)
--- NOTE | 2018-03-12 16:01 | OPERATIVE REPORT ---
DATE OF SERVICE: 03/12/2018 Physician: Arsh Mcpherson MD PREOPERATIVE DIAGNOSIS: Left knee osteoarthritis. POSTOPERATIVE DIAGNOSIS: Left knee osteoarthritis. OPERATIVE PROCEDURE: Left total knee replacement arthroplasty. OPERATING SURGEON: Arsh Mcpherson MD ANESTHESIA: General. INDICATIONS FOR SURGERY: The patient is a 78-year-old female with progressive flexion deformity of h er knee and varus alignment with medial compartment where she has failed nonoperative treatment with constant knee pain and limping and restriction of functional activities. She desires total knee arth roplasty. FINDINGS AT SURGERY: The patient's knee showed incomplete extension on the OR table. She had slight laxity with valgus testing and crepitus along the medial joint with range of motion. At open surger y, she had an effusion in her knee, significant wear in the medial compartment, mainly on the tibial side and in the femoral groove, osteophytes about the joint, but intact cartilages with internal dege neration and intact cruciate ligaments. DESCRIPTION OF OPERATIVE PROCEDURE: The patient was taken to the operating room. She was placed sup ine. An initial attempted at spinal was not effective, so the patient was given general anesthesia. A tourniquet was placed high on her thigh and she was carefully positioned for total knee arthroplas ty with padding under all vulnerable sites. The knee was sterilely prepped and draped in standard fa shion, after which a timeout was held and then a marking pen used to define a curved medial incision. The tourniquet was inflated after exsanguination. Tourniquet pressure was 350 mmHg. Incision was taken through skin, approximately 7 inches in length, and it was taken down to the fascial layers. T he medial parapatellar incision was made and soft tissue reflected on the medial side of the tibia. Fat pad excised to expose the compartments. ACL removed and anterior horns of menisci removed. The knee was then able to be flexed with patella everted and the rongeur used to remove osteophytes aroun d the joint. A central drill hole followed into the femur with placement of the distal femoral cutting guide. The distal femoral cut was made and then sizing block applied for a size 7 left femur. The 4-in-1 block was used to cut the femur and a small bone plug was placed in the central medullary hole. Retractor s were then positioned around the tibia to subluxate it anteriorly, remove the remaining part of the menisci, and medial and lateral and posterior osteophytes. The external tibial cutting block was ali gned with the tibia -2 mm below the worn medial compartment, and this proximal tibial cut was accompl ished and the bone wedge removed. Following this, the tibia was sized to D, and a D size tibial plat e, which was affixed as a trial and broached for a short stubby stem. The trials were put in place a nd the 12 mm seemed to reproduce proper stability of the knee in varus and valgus and anterior and po sterior with full range of motion. The patella was cut, resected down from 23 mm down to 15 to allow replacement with the 8 mm poly patella. Once all the cuts were made, trials were removed. The tiss ues were irrigated thoroughly and then dried, and the components had been opened on the back table an d cementing was undertaken beginning with the tibial base tray, followed by insertion of the femoral component with removal of excess cement, and then insertion of the 12 mm medial stabilized poly and f inally the patella. All excess cement was removed after taking the knee into extension and allowing compression and time to allow setting of cement. After this, the knee was flushed very thoroughly, and the tourniquet was deflated. There was minimal bleeding and cautery was used. Finally, the closure was undertaken usi ng FiberWire running closure in the deep fascial layer, followed by interrupted Vicryl closure subcut aneous and Monocryl closure of skin. Prior to any of this closure, a deep infiltration anesthesia wa s used around the tissues of the knee and 30 mL was placed, and then at the conclusion another 12 mL of local were placed in the skin itself after Monocryl closure. A sterile silver containing dressing was applied to the knee and a soft overwrap, and the patient was taken to recovery room in stable co ndition. ESTIMATED BLOOD LOSS FOR THE PROCEDURE: 200 mL COMPLICATIONS: None. COUNTS: Sponge and needle counts were correct. TD: 03/12/2018 14:28
--- NOTE | 2018-03-12 17:32 | CONSULTATION NOTE ---
Referring Provider Name of Referring Provider:: Dr. Mcpherson Chief Complaint - Chief Complaint Chief Complaint: low respiratory rate History of Present Illness - History of Present Illness HPI Comment/Other: Ms. Vo is 78-yrs old female with a PMH significant for HTN, hypothyroidism, Depression/anxiety, osteoarthritis, who had left knee replacement arthroplasty operated by Dr. Mcpherson. We are consulted for pt's low respiratory rate. upon examination on pt, pt is alert and oriented. pt's O2 sat is 97% on 2 liter of O2, respiratory rate is 14. pt did not present respiratory distress. History - Past Medical History Cardiovascular: reports: Hypertension Respiratory: reports: None Neuro: reports: Migraines, Peripheral neuropathy Endocrine/Autoimmune: reports: None GI: reports: None : reports: None HEENT: reports: None Psych: reports: Anxiety Musculoskeletal: reports: None Derm: reports: None MRSA Hx?: No - Past Surgical History Ortho: reports: Spine surgery /[employer]: reports: Hysterectomy, Oophrectomy, Other HEENT: reports: Tonsil/Adenoidectomy Derm: reports: Other - Family & Social History Family History: Mother: (Mother age 98 from old age), Father: , CVA/TIA, Brother: Parkinson's Disease - Substance History Use: Uses substance without health or social issues: NONE - POLST Patient has POLST: No POLST Status: Full Code Meds/Allgy - Home Medications Home Medications: Ambulatory Orders Medication Instructions Recorded Confirmed Aspirin [Aspir 81] 81 mg ORAL DAILY 12/15/13 03/12/18 amLODIPine [Norvasc] 2.5 mg PO DAILY 10/02/17 03/12/18 ALPRAZolam [Alprazolam] 0.25 mg PO DAILY PRN 03/11/18 03/12/18 B Complex with Vitamin C [Vitamin 1 each PO DAILY 03/11/18 03/12/18 B-Complex with Vit C] Cholecalciferol (Vitamin D3) 1,000 unit PO DAILY 03/11/18 03/12/18 [Vitamin D3] Furosemide 20 mg PO DAILY PRN 03/11/18 03/12/18 Citalopram Hydrobromide 20 mg PO DAILY 03/13/18 03/13/18 [Citalopram HBr] Levothyroxine [Synthroid] 125 mcg PO QDAC 03/13/18 03/13/18 - Allergies Allergies/Adverse Reactions: Allergies Allergy/AdvReac Type Severity Reaction Status Date / Time acetaminophen [From Percocet] Allergy Nausea Verified 03/12/18 07:03 oxycodone AdvReac Hallucinati Verified 03/11/18 11:39 ons Review of Systems - Constitutional Constitutional: denies: Fatigue, Fever, Chills, Malaise, Weakness, Poor appetite, Diaphoresis, Night sweats - Eyes Eyes: denies: Pain, Irritation, Amaurosis, Blurred vision, Spots in vision, Vision loss, Dipolpia - Ears, Nose & Throat Ears, Nose & Throat: denies: Ear pain, Hearing loss, Hearing aids, Tinnitus, Vertigo, Nasal pain, Nasal discharge, Nosebleeds, Nasal obstruction, Nasal congestion, Postnasal drainage, Dentures, Sore throat, Hoarseness, Mouth les ions, Bleeding gums - Cardiovascular Cariovascular: denies: Irregular heart rate, Palpitations, Chest pain, Edema, Lightheadedness, Syncope, Exertional dyspnea, Decr. exercise tolerance - Respiratory Respiratory: denies: Cough, Sputum production, Wheezing, Snoring, Hemoptysis, Orthopnea, SOB at rest, SOB with exertion - Gastrointestinal Gastrointestinal: denies: Abdominal pain, Abdominal distention, Constipation, Diarrhea, Change in bowel habits, Rectal bleeding, Black stools, Bloody stools, Nausea, Vomiting, Coy blood emesis, Coffee grounds emesis, Reflux/heartburn - Genitourinary Genitourinary: denies: Dysuria, Frequency, Urgency, Hematuria, Incontinence, Flank pain, Nocturia - Musculoskeletal Musculoskeletal: reports: Limited range of motion, Joint pain. denies: Muscle pain, Back pain, Muscle aches, Stiffness, Muscle weakness, Gout - Integumentary Integumentary: denies: Rash, Pruritis, Lesions, Dryness, Lumps, Acne, Pigment changes, Nail changes - Neurological Neurological: denies: General weakness, Focal weakness, Headache, Dizziness, Numbness, Memory problems, Pre-existing deficit, Abnormal gait, Seizures - Psychiatric Psychiatric: denies: Depression, Anxiety, Suicidal, Delusions, Hallucinations, Homicidal - Endocrine Endocrine: denies: Polyuria, Polydypsia, Polyphagia, Intolerance to cold - Hematologic/Lymphatic Hematologic/Lymphatic: denies: Anemia, Bruising, Petechiae, Blood clots, Lymphadenopathy, Bleeding tendencies Exam - Vital Signs Reviewed Vital Signs: Yes Vital Signs: Vital Signs x48h Temp Pulse Pulse Resp BP BP Pulse Ox 03/12/18 16:21 37.1 C 77 8 L 130/91 H 97 03/12/18 14:15 36.4 C L 83 8 L 125/84 H 96 03/12/18 13:15 36.6 C 82 10 L 124/94 H 96 03/12/18 12:29 36.6 C 81 10 L 134/87 H 96 03/12/18 11:45 37.2 C 86 11 L 139/88 H 95 03/12/18 11:36 86 13 124/93 H 97 03/12/18 11:27 36.6 C 87 12 125/84 H 95 03/12/18 11:19 36.6 C 90 10 L 137/96 H 93 03/12/18 11:06 36.6 C 92 14 129/88 H 93 03/12/18 10:45 36.6 C 101 H 14 140/114 H 93 03/12/18 10:34 36.6 C 95 17 166/114 H 95 03/12/18 10:24 36.7 C 89 14 175/110 H 94 03/12/18 10:17 36.6 C 87 17 155/113 H 95 03/12/18 10:12 36.8 C 101 H 10 L 187/104 H 98 - Physical Exam General Appearance: positive: No acute distress, Alert. negative: Lethargic Eyes Bilateral: positive: Normal inspection, PERRL, No lid inflammation, Conjunctivae nml ENT: positive: ENT inspection nml, Pharynx nml, No signs of dehydration. negative: Purulent nasal drainage, Pharyngeal erythema, Oral lesions Neck: positive: Thyroid nml, No JVD, Trachea midline. negative: Thyromegaly, Lymphadenopathy (R), Lymphadenopathy (L), Stiff neck, Swelling/bruising, Tracheal deviation Respiratory: positive: Chest non-tender, No respiratory distress, Breath sounds nml. negative: Wheezes, Rales, Rhonchi Cardiovascular: positive: Regular rate & rhythm, No murmur, No gallop. negative: Irregularly irregular, Extrasystoles, Tachycardia, Bradycardia, JVD present, Systolic murmur, Diastolic murmur Peripheral Pulses: positive: 2+ Abdomen: positive: Non-tender, No organomegaly, Nml bowel sounds, No distention. negative: Tenderness, Guarding, Rebound Back: positive: Nml inspection. negative: CVA tenderness (R), CVA tenderness (L) Skin: positive: Color nml, No rash, Warm, Dry. negative: Cyanosis, Diaphoresis, Pallor, Skin rash, Embolic lesions Extremities: positive: Non-tender. negative: Calf tenderness, Joint swelling, Paulo's sign/cords Neurologic/Psychiatric: positive: Oriented x3, Sensation nml, Mood/affect nml. negative: Weakness, Sensory loss, Facial droop, Slurred/abnml speech, Depressed mood/affect Conclusion/Plan - Plan Plan: status post of left knee replacement arthroplasty. it appears pt recovery from general anesthesia effect, pt present normal breath. No Narcan needed at this point. continue O2 supplement as need, continue closely monitor at medial floor by nurse, vital monitor continue pain control continue PT/OT continue daily lab test DVT prophylaxis thank your consult. - Lab Results Lab results reviewed: Yes Fish Bones: 03/13/18 09:04 03/13/18 06:06
[2018-03-12] MEDS: SODIUM CHLORIDE FLUSH 0.9% 10 ML SYRINGE IVP SCH (17:45)
[2018-03-12] MEDS: ASPIRIN 325 MG TABLET PO SCH (17:45)
[2018-03-12] MEDS ORDERED: MORPHINE 2 MG/ML CARPUJECT IVP PRN (17:56)
[2018-03-12 18:39] LABS: ALBUMIN 3.8 g/dL (3.2-5.5); ALBUMIN/GLOBULIN RATIO 1.3 (1.0-2.2); BILIRUBIN,TOTAL 0.8 mg/dL (0.2-1.0); CALCIUM 8.2 mg/dL (8.5-10.3); CREATININE 0.6 mg/dL (0.4-1.0); MAGNESIUM 1.8 mg/dL (1.7-2.8); TOTAL PROTEIN 6.7 g/dL (6.7-8.2)
[2018-03-12 18:46] LABS: BASOPHILS % (AUTO) 0.1 %; EOSINOPHILS % (AUTO) 0.1 %; HGB - HEMOGLOBIN 12.8 g/dL (12.0-16.0); LYMPHOCYTES # (AUTO) 0.7 10^3/uL (1.5-3.5); LYMPHOCYTES % (AUTO) 8.2 %; MEAN CORPUSCULAR HEMOGLOBIN 30.9 pg (27.0-31.0); MEAN CORPUSCULAR HGB CONC 35.1 g/dL (32.0-36.0); MEAN CORPUSCULAR VOLUME 88.1 fL (81.0-99.0); MEAN PLATELET VOLUME 7.8 fL (7.9-10.8); MONOCYTES # (AUTO) 0.5 10^3/uL (0.0-1.0); MONOCYTES % (AUTO) 6.4 %; NEUTROPHILS # (AUTO) 7.2 10^3/uL (1.5-6.6); NEUTROPHILS % (AUTO) 85.2 %; PLT - PLATELET COUNT 179 10^3/uL (130-450); RED BLOOD COUNT 4.15 10^6/uL (4.20-5.40); RED CELL DISTRIBUTION WIDTH 13.2 % (12.0-15.0); WHITE BLOOD COUNT 8.5 x10^3/uL (4.8-10.8)
[2018-03-13] MEDS: SODIUM CHLORIDE FLUSH 0.9% 10 ML SYRINGE IVP SCH ×3 (00:12→15:41)
[2018-03-13] MEDS: HYDROmorphone 1 MG/ML CARPUJECT IVP PRN ×6 (00:53→23:37)
[2018-03-13 06:15] LABS: BASOPHILS % (AUTO) 0.3 %; EOSINOPHILS % (AUTO) 0.6 %; HGB - HEMOGLOBIN 11.8 g/dL (12.0-16.0); LYMPHOCYTES # (AUTO) 0.9 10^3/uL (1.5-3.5); LYMPHOCYTES % (AUTO) 14.1 %; MEAN CORPUSCULAR HEMOGLOBIN 30.7 pg (27.0-31.0); MEAN CORPUSCULAR HGB CONC 34.2 g/dL (32.0-36.0); MEAN CORPUSCULAR VOLUME 89.9 fL (81.0-99.0); MEAN PLATELET VOLUME 7.5 fL (7.9-10.8); MONOCYTES # (AUTO) 0.7 10^3/uL (0.0-1.0); MONOCYTES % (AUTO) 10.3 %; NEUTROPHILS # (AUTO) 4.8 10^3/uL (1.5-6.6); NEUTROPHILS % (AUTO) 74.7 %; PLT - PLATELET COUNT 155 10^3/uL (130-450); RED BLOOD COUNT 3.84 10^6/uL (4.20-5.40); RED CELL DISTRIBUTION WIDTH 12.8 % (12.0-15.0); WHITE BLOOD COUNT 6.5 x10^3/uL (4.8-10.8)
[2018-03-13 06:28] LABS: ALBUMIN 3.5 g/dL (3.2-5.5); ALBUMIN/GLOBULIN RATIO 1.3 (1.0-2.2); BILIRUBIN,TOTAL 1.1 mg/dL (0.2-1.0); CALCIUM 7.9 mg/dL (8.5-10.3); CREATININE 0.8 mg/dL (0.4-1.0); TOTAL PROTEIN 6.2 g/dL (6.7-8.2)
[2018-03-13] MEDS ORDERED: LEVOTHYROXINE 100 MCG TABLET PO SCH (07:00)
[2018-03-13] MEDS ORDERED: POTASSIUM CHLORIDE 20 MEQ TABLET PO SCH (07:31)
--- NOTE | 2018-03-13 07:40 | PROVIDER PROGRESS NOTE ---
Subjective - General Admit Date: 03/12/18 Procedure Date: 03/12/18 Post Op Days: 1 Procedure Performed: left Total knee arthroplasty - Review of Systems Wound/Incisions: positive: Dressing dry and intact General: positive: Fatigue Musculoskeletal: positive: Joint pain, Joint swelling Objective - Patient Data Reviewed Vital Signs: Yes Vital Signs: Vital Signs x48h Temp Pulse Resp BP Pulse Ox 03/13/18 04:10 36.7 C 96 16 117/50 L 94 03/13/18 00:10 36.9 C 87 16 118/62 95 Weight: Weight 03/11/18 03/12/18 03/13/18 23:59 23:59 23:59 Weight (kg) 89.8 kg Intake & Output: Intake and Output Totals x24h 03/11/18 03/12/18 03/13/18 23:59 23:59 23:59 Intake Total 3050 100 Output Total 1225 400 Balance 1825 -300 - Lab Results Lab Results: 03/13/18 06:06 03/13/18 06:06 Other Lab Results: Lab Results x24hrs 03/13/18 03/13/18 03/13/18 Range/Units 06:06 06:06 06:06 WBC 6.5 (4.8-10.8) x10^3/uL RBC 3.84 L (4.20-5.40) 10^6/uL Hgb 11.8 L (12.0-16.0) g/dL Hct 34.5 L (37.0-47.0) % MCV 89.9 (81.0-99.0) fL MCH 30.7 (27.0-31.0) pg MCHC 34.2 (32.0-36.0) g/dL RDW 12.8 (12.0-15.0) % Plt Count 155 (130-450) 10^3/uL MPV 7.5 L (7.9-10.8) fL Neut # (Auto) 4.8 (1.5-6.6) 10^3/uL Lymph # (Auto) 0.9 L (1.5-3.5) 10^3/uL [place] # (Auto) 0.7 (0.0-1.0) 10^3/uL Eos # (Auto) 0.0 (0.0-0.7) 10^3/uL Baso # (Auto) 0.0 (0.0-0.1) 10^3/uL Absolute Nucleated RBC 0.00 x10^3/uL Nucleated RBC % 0.1 /100WBC Sodium 134 L (135-145) mmol/L Potassium 3.4 L (3.5-5.0) mmol/L Chloride 100 L (101-111) mmol/L Carbon Dioxide 28 (21-32) mmol/L Anion Gap 6.0 (6-13) BUN 13 (6-20) mg/dL Creatinine 0.8 (0.4-1.0) mg/dL Estimated GFR (MDRD) 69 L (>89) Glucose 133 H (70-100) mg/dL Calcium 7.9 L (8.5-10.3) mg/dL Magnesium (1.7-2.8) mg/dL Total Bilirubin 1.1 H (0.2-1.0) mg/dL AST 29 (10-42) IU/L ALT 22 (10-60) IU/L Alkaline Phosphatase 51 (42-121) IU/L Total Protein 6.2 L (6.7-8.2) g/dL Albumin 3.5 (3.2-5.5) g/dL Globulin 2.7 (2.1-4.2) g/dL Albumin/Globulin Ratio 1.3 (1.0-2.2) TSH 0.30 L (0.34-5.60) uIU/mL 03/12/18 03/12/18 Range/Units 18:23 18:23 WBC 8.5 (4.8-10.8) x10^3/uL RBC 4.15 L (4.20-5.40) 10^6/uL Hgb 12.8 (12.0-16.0) g/dL Hct 36.6 L (37.0-47.0) % MCV 88.1 (81.0-99.0) fL MCH 30.9 (27.0-31.0) pg MCHC 35.1 (32.0-36.0) g/dL RDW 13.2 (12.0-15.0) % Plt Count 179 (130-450) 10^3/uL MPV 7.8 L (7.9-10.8) fL Neut # (Auto) 7.2 H (1.5-6.6) 10^3/uL Lymph # (Auto) 0.7 L (1.5-3.5) 10^3/uL [place] # (Auto) 0.5 (0.0-1.0) 10^3/uL Eos # (Auto) 0.0 (0.0-0.7) 10^3/uL Baso # (Auto) 0.0 (0.0-0.1) 10^3/uL Absolute Nucleated RBC 0.01 x10^3/uL Nucleated RBC % 0.1 /100WBC Sodium 138 (135-145) mmol/L Potassium 4.0 (3.5-5.0) mmol/L Chloride 100 L (101-111) mmol/L Carbon Dioxide 31 (21-32) mmol/L Anion Gap 7.0 (6-13) BUN 13 (6-20) mg/dL Creatinine 0.6 (0.4-1.0) mg/dL Estimated GFR (MDRD) 96 (>89) Glucose 114 H (70-100) mg/dL Calcium 8.2 L (8.5-10.3) mg/dL Magnesium 1.8 (1.7-2.8) mg/dL Total Bilirubin 0.8 (0.2-1.0) mg/dL AST 31 (10-42) IU/L ALT 25 (10-60) IU/L Alkaline Phosphatase 60 (42-121) IU/L Total Protein 6.7 (6.7-8.2) g/dL Albumin 3.8 (3.2-5.5) g/dL Globulin 2.9 (2.1-4.2) g/dL Albumin/Globulin Ratio 1.3 (1.0-2.2) TSH (0.34-5.60) uIU/mL - Imaging Results Radiology Imaging: positive: EMP read indepedently - Current Medications Current Medications: Current Medications Generic Name Dose Route Start Last Admin Trade Name Freq PRN Reason Stop Dose Admin Aspirin 325 mg 03/12/18 17:00 03/12/18 17:45 Shayy PO 325 mg BIDWM MARILYNN Administration Hydromorphone HCl 1 mg 03/12/18 10:21 03/13/18 04:08 Dilaudid Inj Carp IVP 1 mg Q2HR PRN Administration Breakthrough Pain Lactated Ringer's 1,000 mls @ 100 mls/hr 03/12/18 11:00 03/12/18 22:53 Lr IV 100 mls/hr .Q10H MARILYNN Administration Sodium Chloride 10 ml 03/12/18 17:00 03/13/18 00:12 Normal Saline Flush 0.9% IVP Not Given 0100,0900,1700 MARILYNN - Physical Exam Wound/Incisions: positive: Dressing dry and intact Extremities: positive: Joint swelling Neurologic/Psychiatric: positive: Oriented x3, CN's nml (2-12), Motor nml, Sensation nml, Mood/affect nml Impression/Plan - Problem List Problem List: POD #1 pt is more alert and not having any respiratory compromise. off O2 Plan to advance today with PT. Pain control appears to be an ongoing issue.
[2018-03-13] MEDS: LACTATED RINGERS 1,000 ML IV SCH ×2 (08:59→20:04)
[2018-03-13] MEDS: amLODIPine 5 MG TABLET PO SCH (08:59)
[2018-03-13] MEDS: CITALOPRAM 10 MG TABLET PO SCH (08:59)
[2018-03-13] MEDS: CHOLECALCIFEROL 1,000 UNIT TABLET PO SCH (09:00)
[2018-03-13] MEDS: ASPIRIN 325 MG TABLET PO SCH ×2 (09:00→16:31)
--- NOTE | 2018-03-13 13:58 | PROVIDER PROGRESS NOTE ---
Subjective - Prog Note Date Prog Note Date: 03/13/18 - Subjective Pt reports feeling: Improved Subjective: pt state she felt pain is better controlled. she has no other complaints. Current Medications - Current Medications Current Medications: Active Medications Alprazolam (Xanax) 0.25 mg PO DAILY PRN PRN Reason: NEEDED PER PROVIDER ORDERS Amlodipine Besylate (Norvasc) 2.5 mg PO DAILY [facility] Last Admin: 03/13/18 08:59 Dose: 2.5 mg Aspirin (Shayy) 325 mg PO BIDWM [facility] Last Admin: 03/13/18 09:00 Dose: 325 mg Bisacodyl (Dulcolax Supp) 10 mg [place] Q12H PRN PRN Reason: Constipation Cholecalciferol (Vitamin D3) 1,000 unit PO DAILY [facility] Last Admin: 03/13/18 09:00 Dose: 1,000 unit Citalopram Hydrobromide (Celexa) 20 mg PO DAILY [facility] Last Admin: 03/13/18 08:59 Dose: 20 mg Furosemide (Lasix) 20 mg PO DAILY PRN PRN Reason: NEEDED PER PROVIDER ORDERS Hydromorphone HCl (Dilaudid Inj Carp) 1 mg IVP Q2HR PRN PRN Reason: Breakthrough Pain Last Admin: 03/13/18 11:26 Dose: 1 mg Lactated Ringer's (Lr) 1,000 mls @ 100 mls/hr IV .Q10H [facility] Last Admin: 03/13/18 08:59 Dose: 100 mls/hr Levothyroxine Sodium (Synthroid) 100 mcg PO QDAC [facility] Morphine Sulfate (Morphine (Carpuject)) 2 mg IVP Q2HR PRN PRN Reason: PAIN Ondansetron HCl (Zofran Inj) 4 mg IVP Q6HR PRN PRN Reason: Nausea / Vomiting (B Complex With Vitamin C [Vitamin B -Complex With Vit C] 1 Each) 1 each PO DAILY [facility] Last Admin: 03/13/18 09:01 Dose: Not Given Prochlorperazine Edisylate (Compazine Inj) 10 mg IVP Q6HR PRN PRN Reason: Nausea / Vomiting Senna (Senokot) 17.2 mg PO Q12H PRN PRN Reason: Constipation Sodium Chloride (Normal Saline Flush 0.9%) 10 ml IVP 0100,0900,1700 [facility] Last Admin: 03/13/18 09:00 Dose: Not Given Sodium Chloride (Normal Saline Flush 0.9%) 10 ml IVP PRN PRN PRN Reason: NEEDED PER PROVIDER ORDERS Aspirin [Aspir 81] 81 mg ORAL DAILY 12/15/13 amLODIPine [Norvasc] 2.5 mg PO DAILY 10/02/17 ALPRAZolam [Alprazolam] 0.25 mg PO DAILY PRN 03/11/18 B Complex with Vitamin C [Vitamin B-Complex with Vit C] 1 each PO DAILY 03/11/18 Cholecalciferol (Vitamin D3) [Vitamin D3] 1,000 unit PO DAILY 03/11/18 Furosemide 20 mg PO DAILY PRN 03/11/18 Citalopram Hydrobromide [Citalopram HBr] 20 mg PO DAILY 03/13/18 Levothyroxine [Synthroid] 125 mcg PO QDAC 03/13/18 Objective - Vital Signs/Intake & Output Reviewed Vital Signs: Yes Vital Signs: Vital Signs x48h Temp Pulse Pulse Pulse Pulse Resp BP 03/13/18 13:00 36.9 C 84 12 127/79 03/13/18 10:40 85 84 03/13/18 09:53 97 C H 92 16 03/13/18 08:00 37.0 C 92 12 148/81 H BP BP Pulse Ox 03/13/18 13:00 94 03/13/18 10:40 161/97 H 131/71 H 03/13/18 09:53 96 03/13/18 08:00 96 Intake & Output: Intake & Output 03/10/18 03/11/18 03/12/18 03/13/18 23:59 23:59 23:59 23:59 Intake Total 3050 1420 Output Total 1225 760 Balance 1825 660 - Objective General Appearance: positive: No acute distress, Alert. negative: Lethargic Eyes Bilateral: positive: Normal inspection, PERRL, No lid inflammation, Conjunctivae nml ENT: positive: ENT inspection nml, Pharynx nml, No signs of dehydration. n egative: Purulent nasal drainage, Pharyngeal erythema, Oral lesions Neck: positive: Nml inspection, Thyroid nml, No JVD, Trachea midline. negative: Thyromegaly, Lymphadenopathy (R), Lymphadenopathy (L), Stiff neck, Swelling/bruising, Tracheal deviation Respiratory: positive: Chest non-tender, No respiratory distress, Breath sounds nml. negative: Wheezes, Rales, Rhonchi Cardiovascular: positive: Regular rate & rhythm, No murmur, No gallop. negative: Irregularly irregular, Extrasystoles, Tachycardia, Bradycardia, JVD p resent, Systolic murmur, Diastolic murmur Peripheral Pulses: 2+ Radial (R), 2+ Radial (L), 2+ Dorsalis pedis (R), 2+ Dorsalis pedis (L) Abdomen: positive: Non-tender, No organomegaly, Nml bowel sounds, No distention. negative: Tenderness, Guarding, Rebound Back: positive: Nml inspection. negative: CVA tenderness (R), CVA tenderness (L) Skin: positive: Color nml, No rash, Warm, Dry. negative: Cyanosis, Diaphoresis, Pallor Extremities: positive: Non-tender, Nml appearance. negative: Calf tenderness, Joint swelling, Paulo's sign/cords Neurologic/Psychiatric: positive: Oriented x3, Sensation nml, Mood/affect nml. negative: Weakness, Sensory loss, Facial droop, Slurred/abnml speech, Depressed mood/affect - Lab Results Fish Bones: 03/13/18 09:04 03/13/18 06:06 Other Labs: Lab Results x24hrs 03/13/18 03/13/18 03/13/18 Range/Units 09:04 06:06 06:06 WBC 6.5 (4.8-10.8) x10^3/uL RBC 3.84 L (4.20-5.40) 10^6/uL Hgb 12.0 11.8 L (12.0-16.0) g/dL Hct 34.4 L 34.5 L (37.0-47.0) % MCV 89.9 (81.0-99.0) fL MCH 30.7 (27.0-31.0) pg MCHC 34.2 (32.0-36.0) g/dL RDW 12.8 (12.0-15.0) % Plt Count 155 (130-450) 10^3/uL MPV 7.5 L (7.9-10.8) fL Neut # (Auto) 4.8 (1.5-6.6) 10^3/uL Lymph # (Auto) 0.9 L (1.5-3.5) 10^3/uL [place] # (Auto) 0.7 (0.0-1.0) 10^3/uL Eos # (Auto) 0.0 (0.0-0.7) 10^3/uL Baso # (Auto) 0.0 (0.0-0.1) 10^3/uL Absolute Nucleated RBC 0.00 x10^3/uL Nucleated RBC % 0.1 /100WBC Sodium (135-145) mmol/L Potassium (3.5-5.0) mmol/L Chloride (101-111) mmol/L Carbon Dioxide (21-32) mmol/L Anion Gap (6-13) BUN (6-20) mg/dL Creatinine (0.4-1.0) mg/dL Estimated GFR (MDRD) (>89) Glucose (70-100) mg/dL Calcium (8.5-10.3) mg/dL Magnesium (1.7-2.8) mg/dL Total Bilirubin (0.2-1.0) mg/dL AST (10-42) IU/L ALT (10-60) IU/L Alkaline Phosphatase (42-121) IU/L Total Protein (6.7-8.2) g/dL Albumin (3.2-5.5) g/dL Globulin (2.1-4.2) g/dL Albumin/Globulin Ratio (1.0-2.2) TSH 0.30 L (0.34-5.60) uIU/mL 03/13/18 03/12/18 03/12/18 Range/Units 06:06 18:23 18:23 WBC 8.5 (4.8-10.8) x10^3/uL RBC 4.15 L (4.20-5.40) 10^6/uL Hgb 12.8 (12.0-16.0) g/dL Hct 36.6 L (37.0-47.0) % MCV 88.1 (81.0-99.0) fL MCH 30.9 (27.0-31.0) pg MCHC 35.1 (32.0-36.0) g/dL RDW 13.2 (12.0-15.0) % Plt Count 179 (130-450) 10^3/uL MPV 7.8 L (7.9-10.8) fL Neut # (Auto) 7.2 H (1.5-6.6) 10^3/uL Lymph # (Auto) 0.7 L (1.5-3.5) 10^3/uL [place] # (Auto) 0.5 (0.0-1.0) 10^3/uL Eos # (Auto) 0.0 (0.0-0.7) 10^3/uL Baso # (Auto) 0.0 (0.0-0.1) 10^3/uL Absolute Nucleated RBC 0.01 x10^3/uL Nucleated RBC % 0.1 /100WBC Sodium 134 L 138 (135-145) mmol/L Potassium 3.4 L 4.0 (3.5-5.0) mmol/L Chloride 100 L 100 L (101-111) mmol/L Carbon Dioxide 28 31 (21-32) mmol/L Anion Gap 6.0 7.0 (6-13) BUN 13 13 (6-20) mg/dL Creatinine 0.8 0.6 (0.4-1.0) mg/dL Estimated GFR (MDRD) 69 L 96 (>89) Glucose 133 H 114 H (70-100) mg/dL Calcium 7.9 L 8.2 L (8.5-10.3) mg/dL Magnesium 1.8 (1.7-2.8) mg/dL Total Bilirubin 1.1 H 0.8 (0.2-1.0) mg/dL AST 29 31 (10-42) IU/L ALT 22 25 (10-60) IU/L Alkaline Phosphatase 51 60 (42-121) IU/L Total Protein 6.2 L 6.7 (6.7-8.2) g/dL Albumin 3.5 3.8 (3.2-5.5) g/dL Globulin 2.7 2.9 (2.1-4.2) g/dL Albumin/Globulin Ratio 1.3 1.3 (1.0-2.2) TSH (0.34-5.60) uIU/mL ABX Reporting Has patient been on IV antibiotics over the past 48 hours?: No Sepsis Event Note (H) - Evaluation Current Stage of Sepsis: Ruled out Assessment/Plan - Problem List (1) Status post knee replacement Impression: continue PT/OT pain control followup surgeon (2) HTN (hypertension) Impression: stable, continue home meds continue vital monitor (3) Hypothyroidism Impression: TSH is slight lower today, check T4 reduce Synth from 125 mcg to 100 mcg (4) DVT prophylaxis Impression: continue Aspirin 325 mg bid
[2018-03-13] MEDS: SODIUM CHLORIDE FLUSH 0.9% 10 ML SYRINGE IVP PRN (23:37)
[2018-03-14] MEDS ORDERED: HYDROmorphone 1 MG/ML CARPUJECT IVP PRN (01:08)
[2018-03-14] MEDS: SODIUM CHLORIDE FLUSH 0.9% 10 ML SYRINGE IVP SCH ×3 (01:25→16:48)
[2018-03-14] MEDS: KETOROLAC 30 MG/ML VIAL IVP PRN ×2 (01:48→08:59)
[2018-03-14] MEDS: SODIUM CHLORIDE FLUSH 0.9% 10 ML SYRINGE IVP PRN (01:48)
[2018-03-14] MEDS: LACTATED RINGERS 1,000 ML IV SCH (05:50)
[2018-03-14 06:16] LABS: BASOPHILS % (AUTO) 0.3 %; EOSINOPHILS # (AUTO) 0.1 10^3/uL (0.0-0.7); EOSINOPHILS % (AUTO) 1.3 %; HGB - HEMOGLOBIN 10.7 g/dL (12.0-16.0); LYMPHOCYTES % (AUTO) 17.1 %; MEAN CORPUSCULAR HEMOGLOBIN 30.9 pg (27.0-31.0); MEAN CORPUSCULAR HGB CONC 34.4 g/dL (32.0-36.0); MEAN CORPUSCULAR VOLUME 89.8 fL (81.0-99.0); MEAN PLATELET VOLUME 7.8 fL (7.9-10.8); MONOCYTES # (AUTO) 0.7 10^3/uL (0.0-1.0); MONOCYTES % (AUTO) 11.7 %; NEUTROPHILS # (AUTO) 4.2 10^3/uL (1.5-6.6); NEUTROPHILS % (AUTO) 69.6 %; PLT - PLATELET COUNT 128 10^3/uL (130-450); RED BLOOD COUNT 3.47 10^6/uL (4.20-5.40); RED CELL DISTRIBUTION WIDTH 12.7 % (12.0-15.0)
[2018-03-14 06:30] LABS: ALBUMIN 3.2 g/dL (3.2-5.5); ALBUMIN/GLOBULIN RATIO 1.1 (1.0-2.2); BILIRUBIN,TOTAL 1.4 mg/dL (0.2-1.0); CALCIUM 7.9 mg/dL (8.5-10.3); CREATININE 0.7 mg/dL (0.4-1.0); TOTAL PROTEIN 6.1 g/dL (6.7-8.2)
[2018-03-14] MEDS ORDERED: POTASSIUM CHLORIDE 20 MEQ TABLET PO ONE (07:48)
--- NOTE | 2018-03-14 08:07 | PROVIDER PROGRESS NOTE ---
Subjective - General Admit Date: 03/12/18 Procedure Date: 03/12/18 Post Op Days: 2 Procedure Performed: left Total knee arthroplasty - Review of Systems Wound/Incisions: positive: Healing well General: positive: Fatigue Musculoskeletal: positive: Joint pain, Joint swelling Objective - Patient Data Reviewed Vital Signs: Yes Vital Signs: Vital Signs x48h Temp Pulse Resp BP Pulse Ox 03/14/18 07:43 36.7 C 79 20 114/70 95 03/14/18 04:50 36.7 C 80 16 129/63 97 Weight: Weight 03/12/18 03/13/18 03/14/18 23:59 23:59 23:59 Weight (kg) 89.8 kg Intake & Output: Intake and Output Totals x24h 03/12/18 03/13/18 03/14/18 23:59 23:59 23:59 Intake Total 3050 2620 1126.667 Output Total 1225 1810 2150 Balance 1825 810 -1023.333 - Lab Results Lab Results: 03/14/18 05:50 03/14/18 05:50 Other Lab Results: Lab Results x24hrs 03/14/18 03/14/18 03/14/18 Range/Units 05:50 05:50 05:50 WBC 6.0 (4.8-10.8) x10^3/uL RBC 3.47 L (4.20-5.40) 10^6/uL Hgb 10.7 L (12.0-16.0) g/dL Hct 31.1 L (37.0-47.0) % MCV 89.8 (81.0-99.0) fL MCH 30.9 (27.0-31.0) pg MCHC 34.4 (32.0-36.0) g/dL RDW 12.7 (12.0-15.0) % Plt Count 128 L (130-450) 10^3/uL MPV 7.8 L (7.9-10.8) fL Neut # (Auto) 4.2 (1.5-6.6) 10^3/uL Lymph # (Auto) 1.0 L (1.5-3.5) 10^3/uL [place] # (Auto) 0.7 (0.0-1.0) 10^3/uL Eos # (Auto) 0.1 (0.0-0.7) 10^3/uL Baso # (Auto) 0.0 (0.0-0.1) 10^3/uL Absolute Nucleated RBC 0.00 x10^3/uL Nucleated RBC % 0.0 /100WBC Sodium 134 L (135-145) mmol/L Potassium 3.3 L (3.5-5.0) mmol/L Chloride 97 L (101-111) mmol/L Carbon Dioxide 30 (21-32) mmol/L Anion Gap 7.0 (6-13) BUN 8 (6-20) mg/dL Creatinine 0.7 (0.4-1.0) mg/dL Estimated GFR (MDRD) 81 L (>89) Glucose 117 H (70-100) mg/dL Calcium 7.9 L (8.5-10.3) mg/dL Total Bilirubin 1.4 H (0.2-1.0) mg/dL AST 25 (10-42) IU/L ALT 17 (10-60) IU/L Alkaline Phosphatase 47 (42-121) IU/L Total Protein 6.1 L (6.7-8.2) g/dL Albumin 3.2 (3.2-5.5) g/dL Globulin 2.9 (2.1-4.2) g/dL Albumin/Globulin Ratio 1.1 (1.0-2.2) Free T4 1.18 (0.58-1.64) ng/dL 03/13/18 Range/Units 09:04 WBC (4.8-10.8) x10^3/uL RBC (4.20-5.40) 10^6/uL Hgb 12.0 (12.0-16.0) g/dL Hct 34.4 L (37.0-47.0) % MCV (81.0-99.0) fL MCH (27.0-31.0) pg MCHC (32.0-36.0) g/dL RDW (12.0-15.0) % Plt Count (130-450) 10^3/uL MPV (7.9-10.8) fL Neut # (Auto) (1.5-6.6) 10^3/uL Lymph # (Auto) (1.5-3.5) 10^3/uL [place] # (Auto) (0.0-1.0) 10^3/uL Eos # (Auto) (0.0-0.7) 10^3/uL Baso # (Auto) (0.0-0.1) 10^3/uL Absolute Nucleated RBC x10^3/uL Nucleated RBC % /100WBC Sodium (135-145) mmol/L Potassium (3.5-5.0) mmol/L Chloride (101-111) mmol/L Carbon Dioxide (21-32) mmol/L Anion Gap (6-13) BUN (6-20) mg/dL Creatinine (0.4-1.0) mg/dL Estimated GFR (MDRD) (>89) Glucose (70-100) mg/dL Calcium (8.5-10.3) mg/dL Total Bilirubin (0.2-1.0) mg/dL AST (10-42) IU/L ALT (10-60) IU/L Alkaline Phosphatase (42-121) IU/L Total Protein (6.7-8.2) g/dL Albumin (3.2-5.5) g/dL Globulin (2.1-4.2) g/dL Albumin/Globulin Ratio (1.0-2.2) Free T4 (0.58-1.64) ng/dL - Current Medications Current Medications: Current Medications Generic Name Dose Route Start Last Admin Trade Name Freq PRN Reason Stop Dose Admin Amlodipine Besylate 2.5 mg 03/13/18 09:00 03/13/18 08:59 Norvasc PO 2.5 mg DAILY [facility] Administration Aspirin 325 mg 03/12/18 17:00 03/13/18 16:31 Shayy PO 325 mg BIDWM [facility] Administration Cholecalciferol 1,000 unit 03/13/18 09:00 03/13/18 09:00 Vitamin D3 PO 1,000 unit DAILY [facility] Administration Citalopram Hydrobromide 20 mg 03/13/18 09:00 03/13/18 08:59 Celexa PO 20 mg DAILY [facility] Administration Ketorolac Tromethamine 30 mg 03/14/18 01:07 03/14/18 01:48 Toradol Inj (30mg) IVP 03/19/18 01:06 30 mg Q6HR PRN Administration PAIN (B Complex With 1 each 03/13/18 09:00 03/13/18 09:01 Vitamin C [Vitamin B PO Not Given -Complex With Vit C] DAILY [facility] 1 Each) Sodium Chloride 10 ml 03/12/18 17:00 03/14/18 01:25 Normal Saline Flush 0.9% IVP Not Given 0100,0900,1700 [facility] Sodium Chloride 10 ml 03/12/18 10:21 03/14/18 01:48 Normal Saline Flush 0.9% IVP 10 ml PRN PRN Administration NEEDED PER PROVIDER ORDERS - Physical Exam Wound/Incisions: positive: Healing well General Appearance: positive: No acute distress Extremities: positive: Joint swelling Neurologic/Psychiatric: positive: Oriented x3, CN's nml (2-12), Motor nml, Sensation nml, Mood/affect nml Impression/Plan - Problem List Problem List: POD #2 Pt is usually somewhat sleepy, but still has pain that seems to be excessive. Toradol has helped but will now be a prn drug. Continue PT
[2018-03-14] MEDS: amLODIPine 5 MG TABLET PO SCH (08:58)
[2018-03-14] MEDS: CITALOPRAM 10 MG TABLET PO SCH (08:58)
[2018-03-14] MEDS: ASPIRIN 325 MG TABLET PO SCH ×2 (08:59→16:48)
[2018-03-14] MEDS: LEVOTHYROXINE 100 MCG TABLET PO SCH (08:59)
[2018-03-14] MEDS: CHOLECALCIFEROL 1,000 UNIT TABLET PO SCH (08:59)
[2018-03-14] MEDS: FERROUS SULFATE 325 MG TABLET PO SCH (12:09)
[2018-03-14] MEDS: ACETAMINOPHEN 325 MG TABLET PO PRN ×2 (12:09→19:20)
--- NOTE | 2018-03-14 17:24 | PROVIDER PROGRESS NOTE ---
Subjective - Prog Note Date Prog Note Date: 03/14/18 - Subjective Pt reports feeling: Improved Subjective: pt report she feel better and improved on her pain. She state she will follow PT/OT for strength training Current Medications - Current Medications Current Medications: Active Medications Acetaminophen (Tylenol) 650 mg PO Q4HR PRN PRN Reason: Pain or Fever > 38C (100.4F) Last Admin: 03/14/18 12:09 Dose: 650 mg Alprazolam (Xanax) 0.25 mg PO DAILY PRN PRN Reason: NEEDED PER PROVIDER ORDERS Amlodipine Besylate (Norvasc) 2.5 mg PO DAILY [facility] Last Admin: 03/14/18 08:58 Dose: 2.5 mg Aspirin (Shayy) 325 mg PO BIDWM [facility] Last Admin: 03/14/18 16:48 Dose: 325 mg Bisacodyl (Dulcolax Supp) 10 mg ND Q12H PRN PRN Reason: Constipation Cholecalciferol (Vitamin D3) 1,000 unit PO DAILY [facility] Last Admin: 03/14/18 08:59 Dose: 1,000 unit Citalopram Hydrobromide (Celexa) 20 mg PO DAILY [facility] Last Admin: 03/14/18 08:58 Dose: 20 mg Ferrous Sulfate (Feosol) 325 mg PO 1200 [facility] Last Admin: 03/14/18 12:09 Dose: 325 mg Furosemide (Lasix) 20 mg PO DAILY PRN PRN Reason: NEEDED PER PROVIDER ORDERS Ketorolac Tromethamine (Toradol Inj (30mg)) 30 mg IVP Q6HR PRN PRN Reason: PAIN Stop: 03/19/18 01:06 Last Admin: 03/14/18 08:59 Dose: 30 mg Levothyroxine Sodium (Synthroid) 100 mcg PO QDAC [facility] Last Admin: 03/14/18 08:59 Dose: 100 mcg Ondansetron HCl (Zofran Inj) 4 mg IVP Q6HR PRN PRN Reason: Nausea / Vomiting (B Complex With Vitamin C [Vitamin B -Complex With Vit C] 1 Each) 1 each PO DAILY [facility] Last Admin: 03/14/18 08:59 Dose: Not Given Prochlorperazine Edisylate (Compazine Inj) 10 mg IVP Q6HR PRN PRN Reason: Nausea / Vomiting Senna (Senokot) 17.2 mg PO Q12H PRN PRN Reason: Constipation Last Admin: 03/14/18 08:57 Dose: 17.2 mg Sodium Chloride (Normal Saline Flush 0.9%) 10 ml IVP 0100,0900,1700 [facility] Last Admin: 03/14/18 16:48 Dose: 10 ml Sodium Chloride (Normal Saline Flush 0.9%) 10 ml IVP PRN PRN PRN Reason: NEEDED PER PROVIDER ORDERS Last Admin: 03/14/18 01:48 Dose: 10 ml amLODIPine [Norvasc] 2.5 mg PO DAILY 10/02/17 B Complex with Vitamin C [Vitamin B-Complex with Vit C] 1 each PO DAILY PRN 03/11/18 Cholecalciferol (Vitamin D3) [Vitamin D3] 1,000 unit PO DAILY 03/11/18 Furosemide 20 mg PO DAILY PRN 03/11/18 Citalopram Hydrobromide [Citalopram HBr] 20 mg PO DAILY 03/13/18 Levothyroxine [Synthroid] 125 mcg PO QDAC 03/13/18 Objective - Vital Signs/Intake & Output Reviewed Vital Signs: Yes Vital Signs: Vital Signs x48h Temp Pulse Resp BP Pulse Ox 03/14/18 16:09 36.7 C 73 16 126/67 97 03/14/18 12:25 36.8 C 81 18 123/64 96 Intake & Output: Intake & Output 03/11/18 03/12/18 03/13/18 03/14/18 23:59 23:59 23:59 23:59 Intake Total 3050 2620 1994.667 Output Total 1225 1810 2600 Balance 1825 810 -605.333 - Objective General Appearance: positive: No acute distress, Alert. negative: Lethargic Eyes Bilateral: positive: Normal inspection, PERRL, No lid inflammation, Conjunctivae nml ENT: positive: ENT inspection nml, Pharynx nml, No signs of dehydration. negative: Purulent nasal drainage, Pharyngeal erythema, Oral lesions Neck: positive: Nml inspection, Thyroid nml, No JVD, Trachea midline. negative: Thyromegaly, Stiff neck, Swelling/bruising, Tracheal deviation Respiratory: positive: Chest non-tender, No respiratory distress, Breath sounds nml. negative: Wheezes, Rales, Rhonchi Cardiovascular: positive: Regular rate & rhythm, No murmur, No gallop. neg ative: Irregularly irregular, Extrasystoles, Tachycardia, Bradycardia, JVD present, Systolic murmur, Diastolic murmur Peripheral Pulses: 2+ Radial (R), 2+ Radial (L), 2+ Dorsalis pedis (R), 2+ Dorsalis pedis (L) Abdomen: positive: Non-tender, No organomegaly, Nml bowel sounds, No distention. negative: Tenderness, Guarding, Rebound Back: positive: Nml inspection. negative: CVA tenderness (R), CVA tenderness (L) Skin: positive: Color nml, No rash, Warm, Dry. negative: Cyanosis, Diaphoresis, Pallor Extremities: positive: Non-tender. negative: Calf tenderness, Joint swelling, Paulo's sign/cords Neurologic/Psychiatric: positive: Oriented x3, Sensation nml, Mood/affect nml. negative: Weakness, Sensory loss, Facial droop, Slurred/abnml speech, Depressed mood/affect - Lab Results Fish Bones: 03/15/18 08:30 03/15/18 08:30 Other Labs: Lab Results x24hrs 03/14/18 03/14/18 03/14/18 Range/Units 05:50 05:50 05:50 WBC 6.0 (4.8-10.8) x10^3/uL RBC 3.47 L (4.20-5.40) 10^6/uL Hgb 10.7 L (12.0-16.0) g/dL Hct 31.1 L (37.0-47.0) % MCV 89.8 (81.0-99.0) fL MCH 30.9 (27.0-31.0) pg MCHC 34.4 (32.0-36.0) g/dL RDW 12.7 (12.0-15.0) % Plt Count 128 L (130-450) 10^3/uL MPV 7.8 L (7.9-10.8) fL Neut # (Auto) 4.2 (1.5-6.6) 10^3/uL Lymph # (Auto) 1.0 L (1.5-3.5) 10^3/uL [place] # (Auto) 0.7 (0.0-1.0) 10^3/uL Eos # (Auto) 0.1 (0.0-0.7) 10^3/uL Baso # (Auto) 0.0 (0.0-0.1) 10^3/uL Absolute Nucleated RBC 0.00 x10^3/uL Nucleated RBC % 0.0 /100WBC Sodium 134 L (135-145) mmol/L Potassium 3.3 L (3.5-5.0) mmol/L Chloride 97 L (101-111) mmol/L Carbon Dioxide 30 (21-32) mmol/L Anion Gap 7.0 (6-13) BUN 8 (6-20) mg/dL Creatinine 0.7 (0.4-1.0) mg/dL Estimated GFR (MDRD) 81 L (>89) Glucose 117 H (70-100) mg/dL Calcium 7.9 L (8.5-10.3) mg/dL Total Bilirubin 1.4 H (0.2-1.0) mg/dL AST 25 (10-42) IU/L ALT 17 (10-60) IU/L Alkaline Phosphatase 47 (42-121) IU/L Total Protein 6.1 L (6.7-8.2) g/dL Albumin 3.2 (3.2-5.5) g/dL Globulin 2.9 (2.1-4.2) g/dL Albumin/Globulin Ratio 1.1 (1.0-2.2) Free T4 1.18 (0.58-1.64) ng/dL ABX Reporting Has patient been on IV antibiotics over the past 48 hours?: No Sepsis Event Note (H) - Evaluation Current Stage of Sepsis: Ruled out Assessment/Plan - Problem List (1) Status post knee replacement Impression: 03/14 pt's pain is better controlled. continue PT/OT, followup surgeon continue PT/OT pain control followup surgeon (2) HTN (hypertension) Impression: 03/14 stable stable, continue home meds continue vital monitor (3) Hypothyroidism Impression: 03/14 continue synth 100mcg TSH is slight lower today, check T4 reduce Synth from 125 mcg to 100 mcg (4) DVT prophylaxis Impression: continue Aspirin 325 mg bid
[2018-03-15] MEDS: SODIUM CHLORIDE FLUSH 0.9% 10 ML SYRINGE IVP SCH ×2 (01:58→08:21)
[2018-03-15] MEDS: ACETAMINOPHEN 325 MG TABLET PO PRN (02:02)
[2018-03-15] MEDS ORDERED: MAGNESIUM CITRATE 296 ML BOTTLE PO ONE (03:51)
[2018-03-15] MEDS: LEVOTHYROXINE 100 MCG TABLET PO SCH (05:54)
[2018-03-15] MEDS ORDERED: POTASSIUM CHLORIDE 20 MEQ TABLET PO ONE ×2 (08:06→09:14)
[2018-03-15] MEDS: ASPIRIN 325 MG TABLET PO SCH (08:21)
[2018-03-15] MEDS: CHOLECALCIFEROL 1,000 UNIT TABLET PO SCH (08:21)
[2018-03-15] MEDS: amLODIPine 5 MG TABLET PO SCH (08:21)
[2018-03-15] MEDS: CITALOPRAM 10 MG TABLET PO SCH (08:21)
[2018-03-15 08:46] LABS: BASOPHILS % (AUTO) 0.3 %; EOSINOPHILS # (AUTO) 0.1 10^3/uL (0.0-0.7); EOSINOPHILS % (AUTO) 1.8 %; HGB - HEMOGLOBIN 11.2 g/dL (12.0-16.0); LYMPHOCYTES # (AUTO) 0.8 10^3/uL (1.5-3.5); LYMPHOCYTES % (AUTO) 12.2 %; MEAN CORPUSCULAR HEMOGLOBIN 31.1 pg (27.0-31.0); MEAN CORPUSCULAR HGB CONC 35.6 g/dL (32.0-36.0); MEAN CORPUSCULAR VOLUME 87.6 fL (81.0-99.0); MEAN PLATELET VOLUME 8.3 fL (7.9-10.8); MONOCYTES # (AUTO) 0.5 10^3/uL (0.0-1.0); MONOCYTES % (AUTO) 7.9 %; NEUTROPHILS % (AUTO) 77.8 %; PLT - PLATELET COUNT 154 10^3/uL (130-450); RED BLOOD COUNT 3.61 10^6/uL (4.20-5.40); WHITE BLOOD COUNT 6.5 x10^3/uL (4.8-10.8)
[2018-03-15 09:04] LABS: ALBUMIN 3.6 g/dL (3.2-5.5); ALBUMIN/GLOBULIN RATIO 1.2 (1.0-2.2); BILIRUBIN,TOTAL 1.3 mg/dL (0.2-1.0); CALCIUM 8.7 mg/dL (8.5-10.3); CREATININE 0.6 mg/dL (0.4-1.0); TOTAL PROTEIN 6.6 g/dL (6.7-8.2)
[2018-03-15] MEDS ORDERED: POTASSIUM CHLOR 10 MEQ/100 ML 10 MEQ/100 ML BAG IV ONE (09:16)
[2018-03-15] MEDS: KETOROLAC 30 MG/ML VIAL IVP PRN (11:08)
[2018-03-15] MEDS: FERROUS SULFATE 325 MG TABLET PO SCH (11:13)
[2018-03-15] MEDS: SODIUM CHLORIDE FLUSH 0.9% 10 ML SYRINGE IVP PRN ×2 (11:14→11:23)
[2018-03-15] MEDS ORDERED: traMADol 50 MG TABLET PO PRN (12:04)
--- NOTE | 2018-03-15 12:04 | PROVIDER PROGRESS NOTE ---
Subjective - General Admit Date: 03/12/18 Procedure Date: 03/12/18 Post Op Days: 3 Procedure Performed: left Total knee arthroplasty - Review of Systems Wound/Incisions: positive: Healing well General: positive: Fatigue Musculoskeletal: positive: Joint pain, Joint swelling Objective - Patient Data Reviewed Vital Signs: Yes Vital Signs: Vital Signs x48h Temp Pulse Resp BP Pulse Ox 03/15/18 07:29 36.4 C L 90 20 136/81 H 95 03/15/18 06:00 36.7 C 87 16 138/75 H 98 Intake & Output: Intake and Output Totals x24h 03/13/18 03/14/18 03/15/18 23:59 23:59 23:59 Intake Total 2620 3214.667 670 Output Total 1810 3050 1050 Balance 810 164.667 -380 - Lab Results Lab Results: 03/15/18 08:30 03/15/18 08:30 Other Lab Results: Lab Results x24hrs 03/15/18 03/15/18 Range/Units 08:30 08:30 WBC 6.5 (4.8-10.8) x10^3/uL RBC 3.61 L (4.20-5.40) 10^6/uL Hgb 11.2 L (12.0-16.0) g/dL Hct 31.6 L (37.0-47.0) % MCV 87.6 (81.0-99.0) fL MCH 31.1 H (27.0-31.0) pg MCHC 35.6 (32.0-36.0) g/dL RDW 13.0 (12.0-15.0) % Plt Count 154 (130-450) 10^3/uL MPV 8.3 (7.9-10.8) fL Neut # (Auto) 5.0 (1.5-6.6) 10^3/uL Lymph # (Auto) 0.8 L (1.5-3.5) 10^3/uL [place] # (Auto) 0.5 (0.0-1.0) 10^3/uL Eos # (Auto) 0.1 (0.0-0.7) 10^3/uL Baso # (Auto) 0.0 (0.0-0.1) 10^3/uL Absolute Nucleated RBC 0.00 x10^3/uL Nucleated RBC % 0.0 /100WBC Sodium 135 (135-145) mmol/L Potassium 3.2 L (3.5-5.0) mmol/L Chloride 95 L (101-111) mmol/L Carbon Dioxide 31 (21-32) mmol/L Anion Gap 9.0 (6-13) BUN 9 (6-20) mg/dL Creatinine 0.6 (0.4-1.0) mg/dL Estimated GFR (MDRD) 96 (>89) Glucose 158 H (70-100) mg/dL Calcium 8.7 (8.5-10.3) mg/dL Total Bilirubin 1.3 H (0.2-1.0) mg/dL AST 29 (10-42) IU/L ALT 19 (10-60) IU/L Alkaline Phosphatase 56 (42-121) IU/L Total Protein 6.6 L (6.7-8.2) g/dL Albumin 3.6 (3.2-5.5) g/dL Globulin 3.0 (2.1-4.2) g/dL Albumin/Globulin Ratio 1.2 (1.0-2.2) - Current Medications Current Medications: Current Medications Generic Name Dose Route Start Last Admin Trade Name Freq PRN Reason Stop Dose Admin Acetaminophen 650 mg 03/14/18 01:06 03/15/18 02:02 Tylenol PO 650 mg Q4HR PRN Administration Pain or Fever > 38C (100.4F) Amlodipine Besylate 2.5 mg 03/13/18 09:00 03/15/18 08:21 Norvasc PO 2.5 mg DAILY MARILYNN Administration Aspirin 325 mg 03/12/18 17:00 03/15/18 08:21 Shayy PO 325 mg BIDWM MARILYNN Administration Cholecalciferol 1,000 unit 03/13/18 09:00 03/15/18 08:21 Vitamin D3 PO 1,000 unit DAILY MARILYNN Administration Citalopram Hydrobromide 20 mg 03/13/18 09:00 03/15/18 08:21 Celexa PO 20 mg DAILY MARILYNN Administration Ferrous Sulfate 325 mg 03/14/18 12:00 03/15/18 11:13 Feosol PO 325 mg 1200 MARILYNN Administration Levothyroxine Sodium 100 mcg 03/14/18 07:00 11/16/18 05:54 Synthroid PO 100 mcg QDAC MARILYNN Administration (B Complex With 1 each 03/13/18 09:00 03/15/18 08:28 Vitamin C [Vitamin B PO Not Given -Complex With Vit C] DAILY MARILYNN 1 Each) Senna 17.2 mg 03/12/18 10:21 03/14/18 08:57 Senokot PO 17.2 mg Q12H PRN Administration Constipation Sodium Chloride 10 ml 03/12/18 17:00 03/15/18 08:21 Normal Saline Flush 0.9% IVP 10 ml 0100,0900,1700 MARILYNN Administration Sodium Chloride 10 ml 03/12/18 10:21 03/15/18 11:23 Normal Saline Flush 0.9% IVP 10 ml PRN PRN Administration NEEDED PER PROVIDER ORDERS - Physical Exam Wound/Incisions: positive: Dressing dry and intact Extremities: positive: Joint swelling Neurologic/Psychiatric: positive: Oriented x3, CN's nml (2-12), Motor nml, Sensation nml, Mood/affect nml Impression/Plan - Problem List Problem List: POD #3 Pt is doing better. Will continue with PT Eval for SNF Absolutely no further use of Toradol secondary to GI bleed risk
[2018-03-15 13:07] VITALS: BP 105/57
--- NOTE | 2018-03-15 15:02 | Discharge Plan ---
Discharge Plan Disposition: 01 Home, Self Care Condition: Good Prescriptions: traMADol [Ultram] 50 mg PO Q4HR PRN 7 Days #30 tablet PRN Reason: Pain amLODIPine [Norvasc] 2.5 mg PO DAILY #30 tablet Aspirin [Shayy] 325 mg PO BIDWM 30 Days #60 tablet Walker [Ultra-Light Rollator] 1 each MC DAILY 60 Days #1 each Diet: Regular Activity Restrictions: Wt Bearing as Tolerated Shower Restrictions: Yes (keep wound dry/no bath) Driving Restrictions: Yes (no restriction) Assistance Devices: Walker Weight Bearing: Full Weight Additional Instructions or Follow Up instructions: Ortho within one week No Smoking: If you smoke, Please STOP! Call for help. Follow-up with: Michelet Vega MD [Primary Care Provider] - Arsh Mcpherson MD [Provider Admit Priv/Credential] -
--- NOTE | 2018-03-15 20:47 | PROVIDER PROGRESS NOTE ---
Subjective - Prog Note Date Prog Note Date: 03/15/18 - Subjective Pt reports feeling: Improved Subjective: pt feel good, she is ready for d/c. Current Medications - Current Medications Current Medications: amLODIPine [Norvasc] 2.5 mg PO DAILY 10/02/17 B Complex with Vitamin C [Vitamin B-Complex with Vit C] 1 each PO DAILY PRN 03/11/18 Cholecalciferol (Vitamin D3) [Vitamin D3] 1,000 unit PO DAILY 03/11/18 Furosemide 20 mg PO DAILY PRN 03/11/18 Citalopram Hydrobromide [Citalopram HBr] 20 mg PO DAILY 03/13/18 Levothyroxine [Synthroid] 125 mcg PO QDAC 03/13/18 Objective - Vital Signs/Intake & Output Vital Signs: Vital Signs x48h Temp Pulse Resp BP Pulse Ox 03/15/18 12:57 36.6 C 90 16 105/57 L 97 Intake & Output: Intake & Output 03/12/18 03/13/18 03/14/18 03/15/18 23:59 23:59 23:59 23:59 Intake Total 3050 2620 3214.667 670 Output Total 1225 1810 3050 1050 Balance 1825 810 164.667 -380 - Lab Results Fish Bones: 03/15/18 08:30 03/15/18 08:30 Other Labs: Lab Results x24hrs 03/15/18 03/15/18 Range/Units 08:30 08:30 WBC 6.5 (4.8-10.8) x10^3/uL RBC 3.61 L (4.20-5.40) 10^6/uL Hgb 11.2 L (12.0-16.0) g/dL Hct 31.6 L (37.0-47.0) % MCV 87.6 (81.0-99.0) fL MCH 31.1 H (27.0-31.0) pg MCHC 35.6 (32.0-36.0) g/dL RDW 13.0 (12.0-15.0) % Plt Count 154 (130-450) 10^3/uL MPV 8.3 (7.9-10.8) fL Neut # (Auto) 5.0 (1.5-6.6) 10^3/uL Lymph # (Auto) 0.8 L (1.5-3.5) 10^3/uL [place] # (Auto) 0.5 (0.0-1.0) 10^3/uL Eos # (Auto) 0.1 (0.0-0.7) 10^3/uL Baso # (Auto) 0.0 (0.0-0.1) 10^3/uL Absolute Nucleated RBC 0.00 x10^3/uL Nucleated RBC % 0.0 /100WBC Sodium 135 (135-145) mmol/L Potassium 3.2 L (3.5-5.0) mmol/L Chloride 95 L (101-111) mmol/L Carbon Dioxide 31 (21-32) mmol/L Anion Gap 9.0 (6-13) BUN 9 (6-20) mg/dL Creatinine 0.6 (0.4-1.0) mg/dL Estimated GFR (MDRD) 96 (>89) Glucose 158 H (70-100) mg/dL Calcium 8.7 (8.5-10.3) mg/dL Total Bilirubin 1.3 H (0.2-1.0) mg/dL AST 29 (10-42) IU/L ALT 19 (10-60) IU/L Alkaline Phosphatase 56 (42-121) IU/L Total Protein 6.6 L (6.7-8.2) g/dL Albumin 3.6 (3.2-5.5) g/dL Globulin 3.0 (2.1-4.2) g/dL Albumin/Globulin Ratio 1.2 (1.0-2.2) ABX Reporting Has patient been on IV antibiotics over the past 48 hours?: No Sepsis Event Note (H) - Evaluation Current Stage of Sepsis: Ruled out Assessment/Plan - Problem List (1) Status post knee replacement Impression: we are consulted for respiratory distress after operation. The problem was resolved. pt has 97% sats on room air now. discharge is solely dependent of orthopedics surgeon (2) HTN (hypertension) Impression: stable, (3) Hypothyroidism Impression: TSH test was lower, now Synthroid is down to 100mcg from 120 mcg. discussed with pt before, follow up PCP management.
--- NOTE | 2018-03-17 14:33 | DISCHARGE SUMMARY ---
Physician: Arsh Mcpherson MD DATE OF ADMISSION: 03/12/2018 DATE OF DISCHARGE: 03/15/2018 ADMISSION DIAGNOSIS: Left knee osteoarthritis. OPERATIVE PROCEDURE: A left total knee replacement arthroplasty. REASON FOR HOSPITALIZATION: The patient is a 78-year-old female with advanced osteoarthritis of her left knee, who desired left total knee arthroplasty. The patient had failed nonoperative treatment o f this condition and was prepared for elective surgery. PRIOR MEDICAL HISTORY: The patient's history and physical exam and past medical history were all doc umented in her medical record. HOSPITAL COURSE: The patient was admitted and underwent successful surgery on 03/12/2018. In the po stoperative period, the patient had some respiratory depression, which necessitated a consultation wi th medicine and a revision of pain medicine. The patient also received a peripheral nerve block to h elp with the pain, performed by Anesthesia. The patient received standard care postoperatively, othe rwise with IV fluids, postoperative antibiotics, DVT prophylaxis with aspirin, mechanical compression of her extremities for DVT, early physical therapy. The patient advanced with the plan for discharg e to home on 03/16/2018, however, on 03/15/2018, there had been confusion among the services and nurs ing and social work, and the patient was placed on the timeline of discharge home and a SNF bed had n ot been available, and with this timeline in place and with the patient expressing a willingness to g o home, against my stated desires, at first, I conceded to allow her to be discharged to home into [facility] her . She did show at this point, ability to get up and out of bed and use her walk er and tolerate p.o. medications, and she was not having any fevers or chills and she was tolerating all the medications from preoperation, and the addition of aspirin and pain medicine postoperatively. She was not having any respiratory compromise, so she was willingly discharged to home with planned followup in the [facility] within a week, to keep her dressing clean and dry, and to pretty m uch be at home, confined to home doing her instructed exercises and mobilization with a walker. TD: 03/17/2018 11:49
== END 2018-03-15 15:50 | disposition home or self-care (01) | DRG 470 ==
LOC: MS2 03-12 06:02
PROVIDERS: ADMIT Orthopaedic Surgery; ATTEND Orthopaedic Surgery
PROC: 0SRD0J9 Replacement of Left Knee Joint with Synthetic Substitute, Cemented, Open Approach (ICD-10-PCS; principal; 2018-03-12 07:30)
DX: M17.12 Unilateral primary osteoarthritis, left knee (principal); R06.03 Acute respiratory distress; T50.905A Adverse effect of unspecified drugs, medicaments and biological substances, initial encounter; Y92.230 Patient room in hospital as the place of occurrence of the external cause; I10 Essential (primary) hypertension; E03.9 Hypothyroidism, unspecified; F32.9 Major depressive disorder, single episode, unspecified; F41.9 Anxiety disorder, unspecified; G62.9 Polyneuropathy, unspecified; Z87.891 Personal history of nicotine dependence; Z79.82 Long term (current) use of aspirin; Z79.899 Other long term (current) drug therapy
CPT/HCPCS: 36415; 80048; 80053; 83735; 84439; 84443; 85014; 85018; 85025

== ENCOUNTER 2018-03-11 08:51 | Outpatient (CLI) | payer MEDICARE, OTHER ==
[2018-03-11 09:46] LABS: BASOPHILS % (AUTO) 0.7 %; EOSINOPHILS # (AUTO) 0.1 10^3/uL (0.0-0.7); EOSINOPHILS % (AUTO) 1.9 %; HGB - HEMOGLOBIN 13.6 g/dL (12.0-16.0); LYMPHOCYTES # (AUTO) 1.2 10^3/uL (1.5-3.5); LYMPHOCYTES % (AUTO) 23.9 %; MEAN CORPUSCULAR HEMOGLOBIN 30.9 pg (27.0-31.0); MEAN CORPUSCULAR HGB CONC 35.5 g/dL (32.0-36.0); MEAN CORPUSCULAR VOLUME 87.2 fL (81.0-99.0); MEAN PLATELET VOLUME 7.8 fL (7.9-10.8); MONOCYTES # (AUTO) 0.4 10^3/uL (0.0-1.0); MONOCYTES % (AUTO) 7.5 %; NEUTROPHILS # (AUTO) 3.3 10^3/uL (1.5-6.6); PLT - PLATELET COUNT 200 10^3/uL (130-450); RED BLOOD COUNT 4.41 10^6/uL (4.20-5.40)
[2018-03-11 09:56] LABS: CALCIUM 8.9 mg/dL (8.5-10.3); CREATININE 0.8 mg/dL (0.4-1.0)
== END 2018-03-11 08:52 | disposition home or self-care (01) ==
LOC: LAB 08:51
PROVIDERS: ATTEND Orthopaedic Surgery
DX: Z01.812 Encounter for preprocedural laboratory examination (principal); M17.12 Unilateral primary osteoarthritis, left knee; Z79.899 Other long term (current) drug therapy
CPT/HCPCS: 36415; 80048; 85025; 86850; 86900; 86901

== ENCOUNTER 2019-06-01 11:20 | Emergency (ER) | payer MEDICARE, OTHER ==
--- NOTE | 2019-06-01 12:31 | ED Physician Documentation ---
History of Present Illness - Stated complaint Stated Complaint: COUGH/SOA - Chief complaint Chief Complaint: Resp - Additonal information Additional information: This is an 7-year-old female presents with cough which is been ongoing for several weeks, but worse in the last week. She saw her primary care provider who prescribed her doxycycline on Sunday, and states that if her cough is not better in 2 days she needs to come to the emergency department for an x-ray. Her cough is really not improved with the doxycycline so she presents today. She denies chest pain. At times right after coughing she feels slightly short of breath, but this resolves quickly and at rest she feels okay. No leg swelling, no history of cardiac problems. She denies syncope or lightheadedness. No hemoptysis, no history of DVT or PE. Review of Systems Constitutional: denies: Fever Cardiac: denies: Chest pain / pressure Respiratory: reports: Cough Skin: denies: Rash Immunocompromised: denies: Immunocompromised PD PAST MEDICAL HISTORY - Past Medical History Cardiovascular: Hypertension Respiratory: None Neuro: Migraines, Peripheral neuropathy Endocrine/Autoimmune: None GI: None : None HEENT: None Psych: None Musculoskeletal: None Derm: None - Past Surgical History /[employer]: Hysterectomy - Present Medications Home Medications: Ambulatory Orders Medication Instructions Recorded Confirmed amLODIPine [Norvasc] 2.5 mg PO DAILY 10/02/17 03/13/18 B-Complex with Vitamin C [Vitamin 1 each PO DAILY PRN 03/11/18 03/13/18 B-Complex with Vit C] Cholecalciferol (Vitamin D3) 1,000 unit PO DAILY 03/11/18 03/13/18 [Vitamin D3] Furosemide 20 mg PO DAILY PRN 03/11/18 03/13/18 Citalopram Hydrobromide 20 mg PO DAILY 03/13/18 03/13/18 [Citalopram HBr] Levothyroxine [Synthroid] 125 mcg PO QDAC 03/13/18 03/13/18 Acetaminophen [Tylenol] 650 mg PO Q4HR PRN tablet 03/15/18 Aspirin [Shayy] 325 mg PO BIDWM 30 Days #60 tablet 03/15/18 Citalopram [CeleXA] 20 mg PO DAILY tablet 03/15/18 Levothyroxine [Synthroid] 100 mcg PO QDAC tablet 03/15/18 Walker [Ultra-Light Rollator] 1 each MC DAILY 60 Days #1 each 03/15/18 amLODIPine [Norvasc] 2.5 mg PO DAILY #30 tablet 03/15/18 traMADol [Ultram] 50 mg PO Q4HR PRN 7 Days #30 tablet 03/15/18 Albuterol Sulf [Ventolin Hfa 1 - 2 puffs INH Q4HR PRN #1 inhaler 06/01/19 Inhaler] Benzonatate [Tessalon Perle] 100 - 200 mg PO TID PRN #30 capsule 06/01/19 - Allergies Allergies/Adverse Reactions: Allergies Allergy/AdvReac Type Severity Reaction Status Date / Time acetaminophen [From Percocet] Allergy Nausea Verified 06/01/19 11:26 morphine AdvReac Hallucinati Verified 06/01/19 11:26 ons oxycodone AdvReac Hallucinati Verified 06/01/19 11:26 ons - Social History Does the pt smoke?: No Smoking Status: Never smoker Does the pt drink ETOH?: No Does the pt have substance abuse?: No - POLST Patient has POLST: No POLST Status: Full Code PD ED PE NORMAL - Vitals Vital signs reviewed: Yes - General General: Alert and oriented X 3, No acute distress - HEENT HEENT: PERRL, Other (Voice is hoarse. Posterior pharynx erythematous but without exudate.) - Neck Neck: Supple, no meningeal sign - Cardiac Cardiac: RRR - Respiratory Respiratory: No respiratory distress, Clear bilaterally, Other (No wheeze or crackles) - Abdomen Abdomen: Normal bowel sounds, Soft, Non tender, Non distended - Derm Derm: Warm and dry - Extremities Extremities: No deformity, No edema, No calf tenderness / cord - Neuro Neuro: Alert and oriented X 3 - Psych Psych: Normal mood, Normal affect Results - Vitals Vitals: Vital Signs - 24 hr 06/01/19 06/01/19 11:26 13:22 Temperature 36.7 C 36.8 C Heart Rate 78 66 Respiratory 18 18 Rate Blood Pressure 153/96 H 123/74 O2 Saturation 98 95 Oxygen O2 Source Room air - Rads (name of study) CXR Radiology: Other (No acute cardiopulmonary abnormality) PD MEDICAL DECISION MAKING - ED course Complexity details: considered differential (PNA, bronchitis, URI, laryngitis, allergies, HF, lung mass, effusion) ED course: Pt is well appearing with unremarkable vital signs on evaluation. She has an intermittent cough but otherwise lungs are clear. No chest pain or persistent shortness of breath to suggest PE or ACS. No leg swelling or signs of edema to suggest HF. CXR unremarkable. She likely has a viral bronchitis, but given she has already started doxycycline I think it is reasonable to continue it to completion. I also prescribed tessalon perles and discussed supportive care and return precautions for chest pain, shortness of breath, or other concerning symptoms. Pt agreed and was discharged home in good condition. Departure - Departure Disposition: Home, Self Care Clinical Impression: Bronchitis Condition: Good Instructions: ED Viral Syndrome Follow-Up: Michelet Vega MD [Primary Care Provider] - Prescriptions: Albuterol Sulf [Ventolin Hfa Inhaler] 1 - 2 puffs INH Q4HR PRN #1 inhaler PRN Reason: Shortness Of Air/Wheezing Benzonatate [Tessalon Perle] 100 - 200 mg PO TID PRN #30 capsule PRN Reason: Cough Comments: Your x-ray did not show signs of pneumonia today. You may continue the doxycycline, but I have a high suspicion this is a viral illness causing you some bronchitis or airway inflammation. You also may try the albuterol to see if that helps with your symptoms. If you are coughing up blood, having worsening shortness of breath, swelling or redness in one of your legs, chest pain or other concerning symptoms return to the emergency department Discharge Date/Time: 06/01/19 14:22
--- NOTE | 2019-06-01 12:41 | XRAY Report ---
Reason: cough Procedure Date: 06/01/2019 Accession Number: [id number] / [id number] Procedure: XR - Chest 2 View X-Ray CPT Code: 16862 Final Report FULL RESULT: EXAM: CHEST RADIOGRAPHY EXAM DATE: 06/01/2019 12:19 PM. CLINICAL HISTORY: Cough. COMPARISON: XR CHEST PA AND LAT 05/30/2007 12:44 PM. TECHNIQUE: 2 views. FINDINGS: Lungs/Pleura: Normal volumes. No focal consolidation or evidence of edema. No pleural effusion or pneumothorax. Mediastinum: Heart size is normal. The aorta is mildly tortuous, as before, and contains atherosclerotic calcifications. Other: Mild degenerative changes within the spine. IMPRESSION: No acute cardiopulmonary abnormality. RADIA
[2019-06-01 13:23] VITALS: BP 123/74
== END 2019-06-01 14:22 | disposition home or self-care (01) ==
LOC: ED 11:20
DX: J40 Bronchitis, not specified as acute or chronic (principal); I10 Essential (primary) hypertension
CPT/HCPCS: 71046; 99283; 99284

== ENCOUNTER 2019-06-04 09:37 | Outpatient (CLI) | payer MEDICARE, OTHER ==
[2019-06-04 10:04] LABS: BASOPHILS % (AUTO) 0.5 %; EOSINOPHILS # (AUTO) 0.2 10^3/uL (0.0-0.7); EOSINOPHILS % (AUTO) 3.3 %; HGB - HEMOGLOBIN 13.7 g/dL (12.0-16.0); LYMPHOCYTES # (AUTO) 1.3 10^3/uL (1.5-3.5); LYMPHOCYTES % (AUTO) 23.5 %; MEAN CORPUSCULAR HEMOGLOBIN 29.4 pg (27.0-31.0); MEAN CORPUSCULAR HGB CONC 33.5 g/dL (32.0-36.0); MEAN CORPUSCULAR VOLUME 87.8 fL (81.0-99.0); MEAN PLATELET VOLUME 9.2 fL (7.9-10.8); MONOCYTES # (AUTO) 0.5 10^3/uL (0.0-1.0); MONOCYTES % (AUTO) 8.6 %; NEUTROPHILS # (AUTO) 3.5 10^3/uL (1.5-6.6); NEUTROPHILS % (AUTO) 63.7 %; PLT - PLATELET COUNT 199 10^3/uL (130-450); RED BLOOD COUNT 4.66 10^6/uL (4.20-5.40); RED CELL DISTRIBUTION WIDTH 12.7 % (12.0-15.0); WHITE BLOOD COUNT 5.5 x10^3/uL (4.8-10.8)
[2019-06-04 10:11] LABS: ALBUMIN 4.2 g/dL (3.2-5.5); ALBUMIN/GLOBULIN RATIO 1.4 (1.0-2.2); CREATININE 0.7 mg/dL (0.4-1.0); TOTAL PROTEIN 7.3 g/dL (6.7-8.2)
== END 2019-06-04 09:38 | disposition home or self-care (01) ==
LOC: LAB 09:37
PROVIDERS: ATTEND Orthopaedic Surgery Sports Medicine
DX: Z01.818 Encounter for other preprocedural examination (principal); G56.01 Carpal tunnel syndrome, right upper limb
CPT/HCPCS: 36415; 80053; 85025; 93005

== ENCOUNTER 2019-06-12 08:45 | Emergency (ER) | payer MEDICARE, OTHER ==
[2019-06-12 09:06] VITALS: BP 118/91
[2019-06-12] MEDS ORDERED: CHERRY SYRUP 10 ML UDC PO ONE (09:51)
[2019-06-12] MEDS ORDERED: DEXAMETHASONE 10 MG/ML VIAL PO STA (09:51)
--- NOTE | 2019-06-12 09:54 | ED Physician Documentation ---
PD HPI URI - Stated complaint Stated Complaint: COUGH/SOA - Chief complaint Chief Complaint: Resp - History obtained from History obtained from: Patient - History of Present Illness Timing - onset: How many weeks ago (6) Timing duration: Weeks (6) Timing details: Gradual onset, Still present Associated symptoms: Ear pain, Nasal congestion, Rhinorrhea, Productive cough, Dyspnea Contributing factors: Sick contact Improves by: Rest, Medication, MDI/nebulizer Worsened by: Activity Similar symptoms before: Has not had sx before Recently seen: Clinic, Emergency Dept - Additional information Additional information: Previously well 79-year-old female developed a cough over and she has had a persistence of this cough. She eventually went in to see her primary care doctor and was placed on some doxycycline she did not have improvement with this and was seen in the emergency department of follow-up was given an inhaler and some Tessalon Perles which have helped slightly but she continues to have this cough and she states that she feels that this is the sickest that she has ever been. She has had this persistence on and on and on. She is coughing up scant amounts of yellow and green phlegm. She did not feel that the doxycycline helped at all. Review of Systems Constitutional: reports: Myalgias, Fatigue. denies: Fever Eyes: denies: Decreased vision Ears: reports: Ear pain Nose: reports: Rhinorrhea / runny nose, Congestion Throat: reports: Sore throat Cardiac: denies: Chest pain / pressure, Palpitations Respiratory: reports: Dyspnea, Cough, Wheezing GI: denies: Abdominal Pain, Nausea, Vomiting : denies: Dysuria PD PAST MEDICAL HISTORY - Past Medical History Cardiovascular: Hypertension Respiratory: None Neuro: Migraines, Peripheral neuropathy Endocrine/Autoimmune: None GI: None : None HEENT: None Psych: None Musculoskeletal: None Derm: None - Past Surgical History Past Surgical History: Yes /[employer]: Hysterectomy - Present Medications Home Medications: Ambulatory Orders Medication Instructions Recorded Confirmed Levothyroxine [Synthroid] 125 mcg PO QDAC 03/13/18 06/04/19 Citalopram [CeleXA] 40 mg PO DAILY 06/04/19 06/04/19 amLODIPine [Norvasc] 5 mg PO DAILY 06/04/19 06/04/19 Amox/Clav 875/125 [Augmentin] 1 each PO Q12H #20 tablet 06/12/19 predniSONE [Prednisone] 40 mg PO DAILY #10 tablet 06/12/19 - Allergies Allergies/Adverse Reactions: Allergies Allergy/AdvReac Type Severity Reaction Status Date / Time morphine AdvReac Hallucinati Verified 06/12/19 09:06 ons oxycodone AdvReac Hallucinati Verified 06/12/19 09:06 ons "narcotics" AdvReac Nausea, Uncoded 06/12/19 09:06 hallucinations - Social History Does the pt smoke?: No Smoking Status: Never smoker Does the pt drink ETOH?: No Does the pt have substance abuse?: No - Immunizations Immunizations are current?: Yes - POLST Patient has POLST: No POLST Status: Full Code PD ED PE NORMAL - Vitals Vital signs reviewed: Yes (hypertensive mild ) - General General: Alert and oriented X 3, No acute distress, Well developed/nourished - HEENT HEENT: Atraumatic, PERRL, EOMI, Other (left TM is inflamed in the attic only the right is clear the pharynx is with erythema draining from above. 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 Central bronchial wall thickening could reflect underlying reactive airways or bronchitis. No pneumonia.), EMP read indepedently, See rad report PD MEDICAL DECISION MAKING - ED course Complexity details: reviewed old records, reviewed results, re-evaluated p atient, considered differential, d/w patient ED course: 79-year-old female with a persistent cough has had no improvement with use of doxycycline. She continues to have cough and she does appear to have some inflammation in the upper airways including the left ear. She is administered dexamethasone 10 mg orally and we will place her on a course of Augmentin. Departure - Departure Disposition: 01 Home, Self Care Clinical Impression: Bronchitis Otitis media Qualifiers: Otitis media type: suppurative Chronicity: acute Laterality: left Recurrence: n on-recurrent Spontaneous tympanic membrane rupture: without spontaneous rupture Qualified Code(s): H66.002 - Acute suppurative otitis media without spontaneous rupture of ear drum, left ear Condition: Stable Instructions: ED Otitis Media Acute Adult, ED Bronchitis Asthmatic Follow-Up: Michelet Vega MD [Primary Care Provider] - Prescriptions: Amox/Clav 875/125 [Augmentin] 1 each PO Q12H #20 tablet predniSONE [Prednisone] 40 mg PO DAILY #10 tablet
--- NOTE | 2019-06-12 10:24 | XRAY Report ---
Reason: persistent cough Procedure Date: 06/12/2019 Accession Number: [id number] / [id number] Procedure: XR - Chest 2 View X-Ray CPT Code: 45273 Final Report FULL RESULT: EXAM: CHEST RADIOGRAPHY EXAM DATE: 06/12/2019 10:06 AM. CLINICAL HISTORY: Persistent cough. COMPARISON: CHEST 2 VIEW 06/01/2019 12:05 PM. TECHNIQUE: 2 views. FINDINGS: Lungs/Pleura: Central bronchial wall thickening is noted. No new superimposed focal airspace consolidation. No pleural effusion or pneumothorax. Mediastinum: Stable heart size and mediastinum. Atherosclerotic plaque in the aortic arch. Other: None. IMPRESSION: 1. Central bronchial wall thickening could reflect underlying reactive airways or bronchitis. No pneumonia. RADIA
== END 2019-06-12 10:40 | disposition home or self-care (01) ==
LOC: ED 08:45
DX: J40 Bronchitis, not specified as acute or chronic (principal); H66.002 Acute suppurative otitis media without spontaneous rupture of ear drum, left ear; I10 Essential (primary) hypertension
CPT/HCPCS: 71046; 99283; 99284; A9270

== ENCOUNTER 2019-07-02 10:41 | Day surgery (SDC) | payer MEDICARE, OTHER ==
[2019-07-02] MEDS ORDERED: CEFAZOLIN SODIUM IN 0.9 % NACL 2 GM/100 ML BAG IV ONE (10:47)
[2019-07-02] MEDS ORDERED: LACTATED RINGERS 1,000 ML IV ONE (11:27)
--- NOTE | 2019-07-02 11:40 | ANESTHESIA ---
Pre-Anesthesia VS, & Labs - Diagnosis right carpal tunnel syndrome - Procedure right carpal tunnel release Vital Signs: Temp Pulse Resp BP Pulse Ox 36.4 C L 74 18 145/86 H 96 07/02/19 11:11 07/02/19 11:11 07/02/19 11:11 07/02/19 11:11 07/02/19 11:11 Height 5 ft 4 in Weight (kg) 90 kg Body Mass Index 33.1 - NPO >8 hours - Is Patient ?: No Home Medications and Allergies Home Medications: Ambulatory Orders Citalopram [CeleXA] 40 mg PO DAILY 06/04/19 amLODIPine [Norvasc] 5 mg PO DAILY 06/04/19 Furosemide [Lasix] 20 mg PO DAILY PRN 07/02/19 Levothyroxine [Synthroid] 125 mcg PO QDAC 03/13/18 Citalopram [CeleXA] 40 mg PO DAILY 06/04/19 amLODIPine [Norvasc] 5 mg PO DAILY 06/04/19 Furosemide [Lasix] 20 mg PO DAILY PRN 07/02/19 Allergies/Adverse Reactions: Allergies Allergy/AdvReac Type Severity Reaction Status Date / Time morphine AdvReac Hallucinati Verified 06/12/19 09:06 ons oxycodone AdvReac Hallucinati Verified 06/12/19 09:06 ons "narcotics" AdvReac Nausea, Uncoded 06/12/19 09:06 hallucinations Anes History & Medical History - Anesthetic History Anesthesia Complications: reports: Post-Operative Nausea/Vomiting - Medical History Cardiovascular: reports: Hypertension Pulmonary: reports: None Gastrointestinal: reports: None Urinary: reports: None Neuro: reports: Migraines, Peripheral neuropathy (feet and legs) Musculoskeletal: reports: None Endocrine/Autoimmune: reports: None Blood Disorders: reports: None Skin: reports: None Smoking Status: Never smoker Psychosocial: reports: Depression (controlled with medication) - Surgical History General: Other Eyes Ears Nose Throat (EENT): Tonsil/Adenoidectomy Gynecologic: Hysterectomy Orthopedic: Knee replacement, Spine surgery Results - EKG Results EKG Comparison: Reviewed EKG Exam General: Alert, Oriented x3, Cooperative, No acute distress Dental: Dentures full Upper Mouth Openin Fingerbreadth Neck Mobility: Normal Mallampati classification: III Thyromental Distance: 4-6 cm Respiratory: Lungs clear, Normal breath sounds, No respiratory distress, No accessory muscle use Cardiovascular: Regular rate, Normal S1, Normal S2, No murmurs Mental/Cognitive Status: Alert/Oriented X3, Normal for patient Plan Anesthesia Type: IV Regional (right tyler block) Consent for Procedure(s) Verified and Reviewed: Yes Code Status: Attempt Resuscitation ASA classification: 2-Mild systemic disease Is this case an emergency?: No
[2019-07-02] MEDS ORDERED: BUPIVACAINE 0.25% PF 30 ML VIAL ONE (12:06)
[2019-07-02] MEDS ORDERED: PROPOFOL 200 MG/20 ML VIAL IVP ONE (13:03)
[2019-07-02] MEDS ORDERED: LIDOCAINE-MPF 0.5% 50 ML VIAL IM ONE (13:03)
[2019-07-02] MEDS ORDERED: KETOROLAC 15 MG/ML VIAL IVP ONE (13:03)
--- NOTE | 2019-07-02 14:24 | IMMEDIATE POSTOPERATIVE NOTE ---
Immediate Postoperative Note - Procedure Note Procedure Date: 07/02/19 Pre-Op Diagnosis: Right carpal tunnel Syndrome Procedure: Right open carpal tunnel release Post-Op Diagnosis: Same Primary Surgeon: Braxton Blanco Mine Supervisor: none Anesthesia Type: Regional block Findings: compressed median nerve in carpal tunnel Complications: No complications Estimated Blood Loss (in cc): 5 Drains, Catheters, Devices: none Plan of Care: Patient tolerated procedure well instrument and sponge counts correct patient transferred recovery room in stable condition
[2019-07-02 14:43] VITALS: BP 132/81
--- NOTE | 2019-07-03 20:50 | OPERATIVE REPORT ---
DATE OF SERVICE: 07/02/2019 Physician: Mayo Blanco MD SURGEON: Mayo Blanco MD BROADCAST CHIEF ENGINEER: None. ANESTHESIOLOGIST: Amilcar Stanley CRNA. ANESTHESIA TYPE: Jamison block, right upper extremity. INTRAOPERATIVE COMPLICATIONS: None noted. TOURNIQUET TIME: 49 minutes +5 minutes at 275 mmHg. PREOPERATIVE ANTIBIOTICS: Two grams weight-based IV Ancef. ESTIMATED BLOOD LOSS: Less than 5 mL COMPRESSION DEVICE: Bilateral calf SCD boots. PREOPERATIVE DIAGNOSIS: Right carpal tunnel syndrome. POSTOPERATIVE DIAGNOSIS: PROCEDURE: Right open carpal tunnel release. INTRAOPERATIVE FINDINGS: The patient noted to have thickened transverse carpal ligament and somewhat edematous median nerve. Post-release, there was noted to be complete transection of the transverse carpal ligaments from the distal edge all the way up to the distal forearm fascia, including these mo re proximal areas of release. DESCRIPTION OF PROCEDURE: On 07/02/2019, the patient is identified in the preoperative care unit. S he identifies her right hand as the operative site. This is signed by operating surgeon. The patien t received preoperative weight-based IV antibiotics. She was brought to the operating room. Jamison bl ock is administered after site identification by the anesthesia team and then patient is sedated appr opriately. At this point, the patient's right upper extremity has pre-scrubbing with Hibiclens of th e right hand and forearm followed by alcohol, followed by ChloraPrep and drape. At this point, surgi regino pause identifies right carpal tunnel as the operative site. At this point, the incision is marke d out, essentially at the intersection of Laurent line and between the third and fourth rays, extendin g proximally to the distal wrist crease. The incision is made through skin and then spreading dissec tion is carried out, and [place] elevator is used to get down to the transverse carpal ligament. No ne ed to push the palmaris brevis, as it is not significantly interval to the TCL. A mosquito clamp is used to enter the carpal canal just deep to the transverse carpal ligament, and care is taken to avoi d significant retraction or penetration that could cause any undue pressure on the median nerve. At this point, towards the most ulnar aspect of the transverse carpal ligament, adjacent to the hook of the hamate, under direct visualization the transverse carpal ligament is divided using a scalpel. Ca re is taken to confirm that the distal forearm fascia is released towards the proximal aspect and the most distal aspect of the TCL is released distally. Median nerve is examined and noted to be free o f compression in the carpal tunnel. At this point, it should be noted that the division is done unde r direct visualization and no nerve branches are noted at the area of the division. At this time, copious irrigation is performed, and then the incision is closed using 2-0 Vicryl, foll owed by subcuticular Monocryl. Skin is washed and dried. Mastisol is used. Steri-Strips are applie d. Xeroform dressing is applied, 4 x 4, Sof-Rol, and then Dominic wrap dressing. The patient tolerated the procedure well. Instrument and sponge counts are correct. The patient is transferred to the recovery room in stable condition. She had previously denied any narcotic analgesic prescriptions. She would use [id number] pain management and follow up in 10-14 days or sooner should problems, questions or worsening of her condi tion arise. Her questions were answered preoperatively. She verbalized agreement and satisfaction w ith the plan as outlined. TD: 07/02/2019 15:16
== END 2019-07-02 10:42 | disposition home or self-care (01) ==
LOC: SDS 10:41
PROVIDERS: ATTEND Orthopaedic Surgery Sports Medicine
DX: G56.01 Carpal tunnel syndrome, right upper limb (principal); I10 Essential (primary) hypertension
CPT/HCPCS: 64721; J0690; J7120

== ENCOUNTER 2020-05-04 07:35 | Outpatient (CLI) | payer MEDICARE, OTHER ==
--- OUTSIDE RECORDS SUMMARY | 2020-05-12 00:11 | EXTERNAL MEDICAL SUMMARY RPT | Continuity of Care Document ---
:1940 Demographics Phone Unavailable Preferred Language Unknown Marital Status Unknown Shinto Affiliation Unknown Race Unknown Ethnic Group Unknown Author Organization [place] Address [address] [phone] Phone Care Team Providers Name Role Phone Reich Unavailable Unavailable Problems date description facility 2020-05-04 07:45 COLLAPSED VERTEBRA, NEC, LUMBAR [facility] REGION, INIT Allergies date description facility "narcotics" [facility] No Known Medication Allergies [facility] NO ALLERGY INFORMATION AVAILABLE [facility] NO KNOWN ALLERGIES [facility] morphine [facility] oxycodone [facility] Results Social History date description facility [phone]
== END 2020-05-04 07:36 | disposition critical access hospital (66) ==
LOC: EMS 07:35
PROVIDERS: ATTEND Surgery
DX: M54.5 Low back pain (principal); R35.0 Frequency of micturition; R11.0 Nausea
CPT/HCPCS: A0425; A0429

== ENCOUNTER 2020-05-04 07:45 | Emergency (ER) | payer MEDICARE, OTHER ==
--- NOTE | 2020-05-04 08:18 | ED Physician Documentation ---
PD HPI BACK PAIN - Stated complaint Stated Complaint: RT THIGH/BACK PX - Chief complaint Chief Complaint: Back Pain - History obtained from History obtained from: Patient - History of Present Illness Timing - onset: How many weeks ago (2) Timing - duration: Weeks (2) Timing - details: Abrupt onset, Still present (worse the past few days without reinjury) Location: Lower, Other (midline) Quality: Pain, Sharp Associated symptoms: No: Fever, Weakness, Numbness, Incontinent of urine Worsened by: Movement, Lifting, Twisting Contributing factors: Lifting (she was lifting light box 2 weeks ago at onset of the pain. Pain has persisted with movement despite muscle relaxants by PCP. Pain increased few days ago when getting out of bed. Severe pain now and having abd pain as well, nausea.) Similar symptoms before: Has not had sx before Recently seen: Clinic (seen for the back pain and Rx Robaxin then tizanidine without improvement. Pt taking tylenol.) Review of Systems Constitutional: denies: Fever, Chills Nose: denies: Rhinorrhea / runny nose, Congestion Throat: denies: Sore throat Cardiac: denies: Chest pain / pressure Respiratory: denies: Cough GI: reports: Abdominal Pain, Nausea, Vomiting, Constipation (for few days). 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 HEENT: Tonsil/Adenoidectomy - Present Medications Home Medications: Ambulatory Orders Medication Instructions Recorded Confirmed Citalopram [CeleXA] 20 mg PO DAILY 06/04/19 05/04/20 amLODIPine [Norvasc] 5 mg PO DAILY 06/04/19 05/04/20 Furosemide [Lasix] 20 mg PO DAILY PRN 07/02/19 05/04/20 Docusate Sodium 100Mg Capsule 100 mg PO DAILY #30 capsule 05/04/20 [Colace 100Mg Capsule] Hydrocodone/Acetaminophen [[place] 1 each PO Q6H PRN #20 tablet 05/04/20 5-325 Tablet] Levothyroxine [Synthroid] 88 mcg PO QDAC 05/04/20 05/04/20 Meloxicam [Mobic] 7.5 mg PO BID PRN #20 tablet 05/04/20 Ondansetron Odt [Zofran] 4 mg TL Q6H PRN #20 tablet 05/04/20 Tizanidine HCl [Zanaflex] 2 mg PO TID PRN 05/04/20 05/04/20 methocarbamoL [Robaxin] 250 - 500 mg PO TID PRN 05/04/20 05/04/20 - Allergies Allergies/Adverse Reactions: Allergies Allergy/AdvReac Type Severity Reaction Status Date / Time morphine AdvReac Hallucinati Verified 05/04/20 07:58 ons oxycodone AdvReac Hallucinati Verified 05/04/20 07:58 ons "narcotics" AdvReac Nausea, Uncoded 06/12/19 09:06 hallucinations - Social History Does the pt smoke?: No Smoking Status: Never smoker Does the pt drink ETOH?: No Does the pt have substance abuse?: No - Immunizations Immunizations are current?: Yes - POLST Patient has POLST: No POLST Status: Full Code PD ED PE NORMAL - Vitals Vital signs reviewed: Yes - General General: Alert and oriented X 3, Well developed/nourished, Other (appears in considerable pain with movements of low back. ) - Neck Neck: Supple, no meningeal sign, No adenopathy - Cardiac Cardiac: RRR, No murmur - Respiratory Respiratory: Clear bilaterally - Abdomen Abdomen: Soft, Other (tender in lower abd) - Back Back: No CVA TTP - Derm Derm: Normal color, Warm and dry, No rash - Neuro Neuro: Alert and oriented X 3, No motor deficit, No sensory deficit, Normal speech, Other (normal reflexes at knees. Normal pulses, color and cap refill in feet/toes. ) Results - Vitals Vitals: Vital Signs - 24 hr 05/04/20 05/04/20 05/04/20 10:58 11:07 14:51 Temperature 36.6 C 36.5 C Heart Rate 75 78 80 Respiratory 15 16 18 Rate Blood Pressure 168/88 H 147/87 H O2 Saturation 92 94 97 Oxygen O2 Source Room air - Labs Labs: Laboratory Tests 05/04/20 05/04/20 05/04/20 08:51 08:51 08:55 WBC 8.5 RBC 4.92 Hgb 15.0 Hct 42.6 MCV 86.6 MCH 30.5 MCHC 35.2 RDW 12.5 Plt Count 236 MPV 9.3 Neut # (Auto) 7.4 H Lymph # (Auto) 0.8 L [place] # (Auto) 0.3 Eos # (Auto) 0.0 Baso # (Auto) 0.0 Absolute Nucleated RBC 0.00 Nucleated RBC % 0.0 Sodium 137 Potassium 3.7 Chloride 102 Carbon Dioxide 23 Anion Gap 12.0 BUN 15 Creatinine 0.7 Estimated GFR (MDRD) 80 L Glucose 126 H Calcium 9.3 Total Bilirubin 1.3 H AST 33 ALT 28 Alkaline Phosphatase 83 Total Protein 8.1 Albumin 4.3 Globulin 3.8 Albumin/Globulin Ratio 1.1 Lipase 37 CA 125 Antigen 9.4 Urine Color Urine Clarity Urine pH Ur Specific [place] Urine Protein Urine Glucose (UA) Urine Ketones Urine Occult Blood Urine Nitrite Urine Bilirubin Urine Urobilinogen Ur Leukocyte Esterase Ur Microscopic Review Urine Culture Comments 05/04/20 10:15 WBC RBC Hgb Hct MCV MCH MCHC RDW Plt Count MPV Neut # (Auto) Lymph # (Auto) [place] # (Auto) Eos # (Auto) Baso # (Auto) Absolute Nucleated RBC Nucleated RBC % Sodium Potassium Chloride Carbon Dioxide Anion Gap BUN Creatinine Estimated GFR (MDRD) Glucose Calcium Total Bilirubin AST ALT Alkaline Phosphatase Total Protein Albumin Globulin Albumin/Globulin Ratio Lipase CA 125 Antigen Urine Color YELLOW Urine Clarity CLEAR Urine pH 7.0 Ur Specific [place] 1.010 Urine Protein NEGATIVE Urine Glucose (UA) NEGATIVE Urine Ketones 15 H Urine Occult Blood TRACE-INTA Urine Nitrite NEGATIVE Urine Bilirubin NEGATIVE Urine Urobilinogen 0.2 (NORMAL) Ur Leukocyte Esterase NEGATIVE Ur Microscopic Review NOT INDICATED Urine Culture Comments NOT INDICATED - Rads (name of study) abd angio Radiology: Prelim report reviewed (no aortic process. No other intraabd process. There is lytic, pathologic fracture L1 with surrounding soft tissue edema. 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 Tolerates ambulation and says feels better standing than lying in the ER reclining chair. Brace fits her well. ), considered differential (severe back pain; can get imaging due to concern of aortic/spine/etc. Given IV pain meds. Severe pain with movement in ER. ), d/w patient, d/w retail sales vitamin consultant ([facility] had no beds and did not know if would need active treatment so they would not connect with Spine. [facility] had beds and would consult with Spine for me. Prolonged ER LOS due to finding specialist, getting images over (had technical issues) and then review/call back), other (Dr. Bella, Spine hog confinement system manager, said no active/surgical treatment needed. To use TLSO brace. He suggested Jewitt brace, but we have different brand. To follow up with spine as potential follow up interventions. Mainly eval for primary source. ) ED course: No primary cancer source on abd/pelvic CT. patient will need further workup for that, that would not be done through ER (MRIs, PET scan, etc). Consider possibility primary bone cancer in the spine, though less common. Close follow up with PMD and Spine. She says she has sensitivity to narcotics, with nausea and needing smaller doses. Departure - Departure Disposition: 01 Home, Self Care Clinical Impression: Compression fx, lumbar spine Qualifiers: Encounter type: initial encounter Lumbar vertebra fracture level: L1 Qualified Code(s): S32.010A - Wedge compression fracture of first lumbar vertebra, initial encounter for closed fracture Pathologic compression fracture of spine Qualifiers: Encounter type: initial encounter Qualified Code(s): M48.50XA - Collapsed rut tebra, not elsewhere classified, site unspecified, initial encounter for fracture Condition: Stable Record reviewed to determine appropriate education?: Yes Instructions: ED Fx Comp Vertebral Follow-Up: Lonnie Reich MD [Primary Care Provider] - Ruddy Bella MD [Physician No Access] - Prescriptions: Docusate Sodium 100Mg Capsule [Colace 100Mg Capsule] 100 mg PO DAILY #30 capsule Meloxicam [Mobic] 7.5 mg PO BID PRN #20 tablet PRN Reason: Pain Hydrocodone/Acetaminophen [[place] 5-325 Tablet] 1 each PO Q6H PRN #20 tablet PRN Reason: Pain Ondansetron Odt [Zofran] 4 mg TL Q6H PRN #20 tablet PRN Reason: Nausea / Vomiting Comments: Use the back brace for support of the low back certainly when up and around and moving. You may even feel better with that when lying or sleeping but is not as needed then. I talked with a at risk specialist at [facility] ([facility] did not have any beds or specialists available today to consult). The specialist looked at your images and stated there was not any surgical intervention needed at this time. To use the back brace and pain medicine but to investigate further any potential cause for it as it does look to be possibly a metastatic lesion. This may require MRI or body scans to be done outpatient. Follow up with back specialist though, to see the progression of healing. Use some anti-inflammatory pain medicine twice daily. To that add Tylenol 4 times a day and then hydrocodone if needed for worse pain. Stool softeners daily as well. Follow-up with your primary care in the next several days, call for an appointment. Return if worsening. Discharge Date/Time: 05/04/20 15:53
[2020-05-04] MEDS ORDERED: ONDANSETRON 4 MG/2 ML VIAL IVP STA ×2 (08:30→10:23)
[2020-05-04] MEDS ORDERED: HYDROmorphone 1 MG/ML CARPUJECT IVP STA ×2 (08:30→09:40)
[2020-05-04] MEDS ORDERED: KETOROLAC 15 MG/ML VIAL IVP STA (08:30)
[2020-05-04] MEDS ORDERED: SODIUM CHLORIDE 0.9% 1,000 ML IV STA (08:30)
[2020-05-04] MEDS ORDERED: IOVERSOL 320 100 ML VIAL IVP ONE ×2 (08:49→12:23)
[2020-05-04 08:59] LABS: BASOPHILS % (AUTO) 0.4 %; EOSINOPHILS % (AUTO) 0.2 %; HCT - HEMATOCRIT 42.6 % (37.0-47.0); LYMPHOCYTES # (AUTO) 0.8 10^3/uL (1.5-3.5); LYMPHOCYTES % (AUTO) 8.8 %; MEAN CORPUSCULAR HEMOGLOBIN 30.5 pg (27.0-31.0); MEAN CORPUSCULAR HGB CONC 35.2 g/dL (32.0-36.0); MEAN CORPUSCULAR VOLUME 86.6 fL (81.0-99.0); MEAN PLATELET VOLUME 9.3 fL (7.9-10.8); MONOCYTES # (AUTO) 0.3 10^3/uL (0.0-1.0); MONOCYTES % (AUTO) 3.5 %; NEUTROPHILS # (AUTO) 7.4 10^3/uL (1.5-6.6); NEUTROPHILS % (AUTO) 86.9 %; PLT - PLATELET COUNT 236 10^3/uL (130-450); RED BLOOD COUNT 4.92 10^6/uL (4.20-5.40); RED CELL DISTRIBUTION WIDTH 12.5 % (12.0-15.0); WHITE BLOOD COUNT 8.5 x10^3/uL (4.8-10.8)
[2020-05-04 09:13] LABS: ALBUMIN 4.3 g/dL (3.2-5.5); ALBUMIN/GLOBULIN RATIO 1.1 (1.0-2.2); BILIRUBIN,TOTAL 1.3 mg/dL (0.2-1.0); CALCIUM 9.3 mg/dL (8.5-10.3); CREATININE 0.7 mg/dL (0.4-1.0); POTASSIUM 3.7 mmol/L (3.5-5.0); TOTAL PROTEIN 8.1 g/dL (6.7-8.2)
--- NOTE | 2020-05-04 09:47 | CT Report ---
PROCEDURE: ANGIO ABDOMEN/PELVIS W INDICATIONS: low back to now abd pain CONTRAST: IV CONTRAST: Optiray 320 ml: 100 PO CONTRAST: *NO PO CONTRAST TECHNIQUE: After the administration of intravenous contrast, 2 and 5 mm sections acquired from the diaphragm to the iliac crests. 3-dimensional maximum intensity projection (MIP) coronal and sagittal reformats, a nd/or 3-dimensional volume rendering reformatting was then performed. For radiation dose reduction, the following was used: automated exposure control, adjustment of mA and/or kV according to patient size. COMPARISON: None FINDINGS: Image quality: Excellent. Extravascular tissues: There is a subtle small groundglass opacity in the anterior inferior aspect of the right upper lobe on image 1/5. On that same image is a subtle 1.5 cm groundglass opacity in the posterior basal segment of the right lower lobe. Heart size is normal. Moderate hiatal hernia. There is a hypervascular lesion in the liver on image 31/4 which likely represents the spleen is normal in size. Probable flash filling of a hemangioma in the liver measuring approximately 2.0 cm. Gallbladder is distended without gallbladder wall thickening or radiopaque stones. No fluid around the gallbladd er. Biliary system is non dilated. Pancreas enhances normally. No adrenal nodules. Kidneys are no rmal in size and enhancement, without hydronephrosis. There is a probable large duodenal diverticulu m containing debris. Non-opacified bowel loops demonstrate normal wall thickness and caliber. No elda e fluid or air. No retroperitoneal or mesenteric adenopathy. No ventral hernias. No suspicious bon y abnormalities. There is a pathologic lytic destructive compression fracture of the L1 vertebral bod y with associated epidural soft tissue mass resulting in marked canal stenosis. Uterus is surgically absent. A pessary is present. Bilateral fat-containing inguinal hernias. No inguinal adenopathy. Abdominal aorta: Atherosclerotic calcifications. SMA, celiac, and NILO are patent. Bilateral single r enal arteries are widely patent. No aneurysms or stenoses. Mesenteric arteries: Widely patent Renal arteries: Widely patent IMPRESSION: 1. There is a pathologic compression fracture of L1 secondary to a lytic destructive lesion with asso ciated large epidural soft tissue component resulting in marked canal stenosis. 2. No evidence of abdominal aortic aneurysm. Atherosclerosis. 3. A hypervascular lesion in the liver likely represents flash filling of a 2.0 cm hemangioma. 4. Moderate hiatal hernia. 5. 2 separate groundglass opacities present in the right lung. Recommend CT chest to evaluate for pos sible malignancy. 6. 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 Above discussed with JUNE MCKEE at the time of dictation on 05/04/2020 at 0945 hours. Reviewed by: Celio Ernst MD on 05/04/2020 9:46 AM PST Approved by: Celio Ernst MD on 05/04/2020 9:46 AM PST Station ID: [id number]
[2020-05-04] MEDS ORDERED: DEXAMETHASONE 10 MG/ML VIAL IVP STA (10:10)
[2020-05-04 10:28] LABS: BILIRUBIN,URINE NEGATIVE (NEGATIVE); GLUCOSE, URINE (UA) NEGATIVE (NEGATIVE); KETONES,URINE (UA) 15 mg/dL (NEGATIVE); LEUKOCYTE ESTERASE, URINE NEGATIVE (NEGATIVE); NITRITE,URINE NEGATIVE (NEGATIVE); OCCULT BLOOD,URINE TRACE-INTA (NEGATIVE); PROTEIN,URINE NEGATIVE (NEGATIVE); UROBILINOGEN,URINE 0.2 (NORMAL) E.U./dL (NORMAL)
[2020-05-04 10:32] LABS: CLARITY,URINE CLEAR (CLEAR)
[2020-05-04] MEDS ORDERED: PROMETHAZINE INJ 12.5 MG in SODIUM CHLORIDE 0.9% 50 ML IV STA (13:02)
[2020-05-04] MEDS ORDERED: fentaNYL 100 MCG/2 ML VIAL IVP STA (13:02)
[2020-05-04 14:51] VITALS: BP 147/87
--- OUTSIDE RECORDS SUMMARY | 2020-05-12 00:07 | EXTERNAL MEDICAL SUMMARY RPT | Continuity of Care Document ---
:1940 Demographics Phone Unavailable Preferred Language Unknown Marital Status Unknown Christianity Affiliation Unknown Race Unknown Ethnic Group Unknown Author Organization [place] Address [address] [phone] Phone Care Team Providers Name Role Phone Reich Unavailable Unavailable Problems date description facility 2020-05-04 07:45 COLLAPSED VERTEBRA, NEC, LUMBAR [facility] REGION, INIT Allergies date description facility "narcotics" [facility] No Known Medication Allergies [facility] NO ALLERGY INFORMATION AVAILABLE [facility] NO KNOWN ALLERGIES [facility] morphine [facility] oxycodone [facility] Results Social History date description facility [phone]
== END 2020-05-04 15:53 | disposition home or self-care (01) ==
LOC: EDUNIT# → ED 07:45
DX: M48.56XA Collapsed vertebra, not elsewhere classified, lumbar region, initial encounter for fracture (principal)
CPT/HCPCS: 36415; 74174; 80053; 81003; 83690; 85025; 86304; 96361; 96374; 96375; 99284; J1170; J7040; Q9967; 81001; 87086